=== PATIENT | male | born 1965 | race Caucasian/White ===

== ENCOUNTER 2017-03-14 15:59 | Inpatient (IN) ==
[2017-03-14] MEDS ORDERED: Acetaminophen 325 MG TABLET PO PRN (20:13)
[2017-03-14] MEDS ORDERED: Naloxone 0.4 MG/ML INJ IVP PRN (21:09)
--- NOTE | 2017-03-14 21:19 | Internal Med History&Physical ---
Date of Encounter: 03/14/17 Time of Encounter: 21:16 Assessment and Plan (1) Chest pain Current visit: Yes Status: Acute trend trop repeat ekg check TTE further management pending above testing Qualifiers: Chest pain type: precordial pain Qualified Code(s): R07.2 - Precordial pain (2) Afib Current visit: Yes Status: Acute will repeat EKG to confirm [facility] report - was not able to find EKG done at [facility] Qualifiers: Atrial fibrillation type: unspecified Qualified Code(s): I48.91 - Unspecified atrial fibrillation (3) DMII (diabetes mellitus, type 2) Current visit: Yes Status: Acute continue Lantus 150mg BID as confirmed by patient, ISS Qualifiers: Chronic kidney disease stage: unspecified stage Qualified Code(s): E11.22 - Type 2 diabetes mellitus with diabetic chronic kidney disease; Z79.4 - continuous churn buttermaker (current) use of insulin; Z79.4 - residential (current) use of insulin; Z79.4 - continuous churn buttermaker (current) use of insulin; Z79.4 - continuous churn buttermaker (current) use of insulin (4) Obesity Current visit: Yes Status: Acute OHS on CPAP when asleep Qualifiers: Qualified Code(s): E66.9 - Obesity, unspecified Internal Medicine - H&P: HPI Chief complaint: CP Admitted From: Home History of present illness: Mr. Guerrero is a 51 year old male who presents with CP Co-morbid obesity, IDDM, ROMEO on CPAP, chronic back pain, HTN He is a transfer from [facility]. Chest pain for the last 2-3 days. Pain described as sharp, somewhat worsen with inspiration, radiation to the left arm, comes and goes lasting 15-20 mins at a time. Nitro helped. No exertional component and can happen while at rest. CTA of chest in [facility] negative for PNA to evidence of PE Some reports of AFib via kandy paper work vs. PVC Past Med Surg Social Fam HX - Past Medical History Medical history: arthritis, GERD, hyperlipidemia, hypertension, kidney stones Psychiatric history: anxiety, depression - Past Surgical History Surgical History: orthopedic, other - Social History Smoking Status: Former smoker Smokeless Tobacco Status: No Alcohol use: none Drug use: none - Family History Father Living Status: Still Living Hx Family Cardiac Disorders: Yes Hx Family GI Disorders: Yes (bowel resection) Hx Family Endocrine Disorder: Yes (diabetic) Internal Medicine - H&P: Meds Furosemide [Lasix] 40 mg PO DAILY 08/03/15 [History] Insulin Glargine [Lantus] 150 unit SQ BID 08/03/15 [History] Oxycodone HCl/Acetaminophen [Percocet 10-325 mg Tablet] 1 tab PO Q4H PRN [History] 3 Allergy/AdvReac Type Severity Reaction Status Date / Time No Known Allergies Allergy Verified 08/03/15 09:19 All Systems PM: A 10-system review of systems was performed and is negative for pertinent findings except as documented above in the HPI. Review of systems: ROS 14 point review of systems reviewed as best as possible given presentation. Pertinent positive or negative as per HPI or otherwise reviewed as negative - Constitutional Vitals: Temp Pulse Resp BP Pulse Ox 98.6 F 88 18 121/78 97 03/14/17 19:03/14/17 19:03/14/17 19:03/14/17 19:03/14/17 21:03 Exam: General - AAO x 3 Psych - Appropriate affect/speech. No agitation Eyes - ANJEL. Eye lids intact. No scleral icterus Neuro - Moving all 4 extremities Heart - Sinus. RRR. S1 and S2 present. No added HS/murmurs appreciated. No elevated JVD appreciated. Lung - Adequate air entry b/l, No crackles/wheezes appreciated GI - Soft, non-tender. No hepatosplenomegaly/ascites. BS+ - No CVA/suprapubic tenderness or palpable bladder distension
[2017-03-14] MEDS ORDERED: D5% in Water 1,000 ML IVC PRN (21:22)
[2017-03-14] MEDS ORDERED: Dextrose Gel 15 GM/37.5 ML TUBE PO PRN ×2 (21:22)
[2017-03-14] MEDS ORDERED: *HR* Dextrose 50 % in Water (Syg) 50 ML SYRINGE IVP PRN (21:22)
[2017-03-14] MEDS: *HR* OxyCODONE/APAP 10/325 TABLET PO PRN (23:01)
[2017-03-14] MEDS: Nitroglycerin 0.4 MG TAB.SUBL SL PRN (23:58)
[2017-03-15] MEDS: Nitroglycerin 0.4 MG TAB.SUBL SL PRN (00:15)
[2017-03-15] MEDS: Pregabalin 75 MG CAPSULE PO SCH ×3 (01:31→20:10)
[2017-03-15] MEDS: traZODone 50 MG TABLET PO SCH ×2 (01:31→20:10)
[2017-03-15] MEDS: *HR* OxyCODONE/APAP 10/325 TABLET PO PRN ×2 (03:47→23:09)
[2017-03-15 04:00] LABS: Basophils # 0.1 K/mcL (0.0-0.2); Basophils % 0.5 %; Eosinophils # 0.1 K/mcL (0.0-0.6); Hematocrit 49.7 % (37.5-50.1); Immature Granulocytes % 0.3 % (0-4); Lymphocytes # 2.2 K/mcL (0.6-4.6); Lymphocytes % 22.7 %; Mean Corpuscular HGB Conc 30.2 g/dL (31.6-35.5); Mean Corpuscular Hemoglobin 25.4 pg (28.0-33.3); Mean Corpuscular Volume 84.1 fL (83.0-100.0); Mean Platelet Volume 11.7 fL (9.4-12.4); Monocytes # 0.7 K/mcL (0.0-1.3); Monocytes % 7.8 %; Neutrophils # 6.5 K/mcL (1.6-8.9); Platelet Count 272 K/mcL (140-400); Red Blood Count 5.91 M/mcL (4.19-5.50); Red Cell Distribution Width 17.7 % (11.5-14.5); Segmented Neutrophils % 67.7 %
[2017-03-15 04:06] LABS: Alanine Aminotransferase 10 Units/L (7-52); Alkaline Phosphatase 61 Units/L (34-104); Aspartate Amino Transferase 14 Units/L (13-39); BUN/Creatinine Ratio 18 (6-26); Bilirubin,Total 0.8 mg/dL (0.3-1.0); Blood Urea Nitrogen 15 mg/dL (6-20); Calcium 9.4 mg/dL (8.6-10.3); Carbon Dioxide 31 mEq/L (23-29); Chloride 100 mEq/L (98-107); Globulin 4.1 g/dL (2.4-3.5); Glucose 172 mg/dL (70-105); Magnesium 1.7 mg/dL (1.6-2.6); Osmolality,Calculated 295 (280-300); Potassium 3.7 mEq/L (3.5-5.1); Sodium 140 mEq/L (136-145); Total Protein 8.1 g/dL (6.4-8.9); eGFR For African Americans > 60 (> 60); eGFR For Non-African Americans > 60 (> 60)
[2017-03-15] MEDS ORDERED: *HR* Enoxaparin 40 MG/0.4 ML SYRINGE SQ SCH (06:00)
[2017-03-15] MEDS ORDERED: Perflutren Lipid Microsphere 1.3 ML in 0.9 % Sodium Chloride 8.7 ML IVP ONE (07:45)
[2017-03-15] MEDS ORDERED: Insulin DETEMIR 100 UNIT/ML X5UNITS SQ SCH (09:00)
[2017-03-15] MEDS ORDERED: INSULIN GLARGINE SQ SCH (09:00)
[2017-03-15] MEDS: Furosemide 40 MG TABLET PO SCH (09:16)
[2017-03-15] MEDS: Insulin LISPRO 300 UNITS/3 ML VIAL SQ SCH ×4 (09:16→20:25)
[2017-03-15] MEDS: *HR* Enoxaparin 40 MG/0.4 ML SYRINGE SQ SCH (09:16)
[2017-03-15] MEDS: Insulin DETEMIR 100 UNIT/ML X5UNITS SQ SCH ×2 (09:16→20:09)
[2017-03-15] MEDS: Aspirin 81 MG TAB.CHEW PO SCH (10:54)
--- NOTE | 2017-03-15 12:35 | Electrocardiograph Report ---
[address] [address] Test Date: 2017-03-15 Pat Name: Azael Guerrero Department: 113 Room: 3B33 Gender: M [employer] Operator: LIEN : 1965 Requested By: Tessa Zhong Order Number: [id number] Reading MD: Juan Pablo Segal MD Measurements Intervals [place] Rate: 94 P: 65 RI: 200 QRS: 22 QRSD: 94 T: 90 QT: 384 QTc: 436 Interpretive Statements SINUS RHYTHM WITH FREQUENT VENTRICULAR PREMATURE COMPLEXES IN COUPLET PATTERN ABNORMAL RHYTHM ECG Electronically Signed On 03-15-2017 12:34:18 EST by Juan Pablo Segal MD
--- NOTE | 2017-03-15 16:10 | Internal Med Progress Note ---
Date of Encounter: 03/15/17 Time of Encounter: 10:30 - Assessment and plan (1) Chest pain Current Visit: Yes Status: Acute Qualifiers: Chest pain type: precordial pain Qualified Code(s): R07.2 - Precordial pain (2) Afib Current Visit: Yes Status: Acute Assessment and plan: Outside hospital EKG with A. fib, HR 92. No evidence of atrial fibrillation on EKG or tele. Telemetry reviewed did note bigeminy and PVCs. No hx of A. fib per patient. Hold on anticoagulation at this time. Continue BB. Cardiology consult Qualifiers: Atrial fibrillation type: paroxysmal Qualified Code(s): I48.0 - Paroxysmal atrial fibrillation (3) DMII (diabetes mellitus, type 2) Current Visit: Yes Status: Acute Assessment and plan: per hx. Control unknown. Continue home long-acting, low-dose SSI. Monitor blood sugars and titrate PRN Qualifiers: Chronic kidney disease stage: unspecified stage Qualified Code(s): E11.22 - Type 2 diabetes mellitus with diabetic chronic kidney disease; Z79.4 - correction (current) use of insulin; Z79.4 - extermination inspector (current) use of insulin; Z79.4 - extermination inspector (current) use of insulin; Z79.4 - extermination inspector (current) use of insulin (4) Obesity Current Visit: Yes Status: Acute Assessment and plan: BMI 60, weight 186 kg. Lifestyle modification strongly encouraged. Qualifiers: Obesity type: due to excess calories Obesity classification: adult class 3 (BMI >= 40) Body mass index: BMI 60.0-69.9 Qualified Code(s): E66.01 - Morbid (severe) obesity due to excess calories; Z68.44 - Body mass index (BMI) 60.0-69.9, adult; Z68.44 - Body mass index (BMI) 60.0-69.9, adult; Z68.44 - Body mass index (BMI) 60.0-69.9, adult; Z68.44 - Body mass index (BMI) 60.0-69.9 , adult (5) ROMEO (obstructive sleep apnea) Current Visit: Yes Status: Acute Assessment and plan: cont BiPAP (6) DVT prophylaxis Current Visit: Yes Status: Acute Assessment and plan: lovenox - Subjective Interval history: Seen and examined at bedside. Patient is new to me, information obtained from chart review and patient report. Still with intermittent left-sided chest pain that radiates to left arm. No shortness of breath. No palpitations, - Constitutional Vitals: Temp Pulse Resp BP Pulse Ox 97.8 F 90 15 119/79 96 03/15/17 15:32 03/15/17 15:32 03/15/17 15:32 03/15/17 15:32 03/15/17 15:32 General appearance: Present: A&O X 3, morbidly obese - Head Head exam: Present: atraumatic, normocephalic - Eye Eye exam: Present: PERRL, conjuntiva pink, sclera anicteric Pupils: Present: PERRL - Neck Neck exam general surgery: Present: supple, trachea midline. Absent: lymphadenopathy - Respiratory Respiratory exam: Present: CTAB. Absent: accessory muscle use, rales, rhonchi, wheezes - Cardiovascular Cardiovascular exam: Present: RRR, +S1, +S2. Absent: diastolic murmur, gallop, rubs, systolic murmur - GI/Abdominal GI/Abdominal exam: Present: normal bowel sounds, soft, no peritoneal signs. Absent: distended, tenderness - Extremities Exam Extremities exam: Present: warm, radial pulses palpable and symmetrical. Absent : calf tenderness, cyanotic, pedal edema - Neurological Exam Neurological exam: Present: CN II-XII intact, oriented X3, no focal deficits. Absent: pronater drift, facial droop, speech deficit - Skin Skin exam: Present: dry, intact Internal Medicine: Result - Labs CBC & Chem 7: 03/15/17 03:32 03/15/17 03:32 Labs: Short CBC 03/15/17 Range/Units 03:32 WBC 9.5 (4.3-11.1) K/mcL Hgb 15.0 (12.9-16.9) g/dL Hct 49.7 (37.5-50.1) % Plt Count 272 (140-400) K/mcL Neutrophils # 6.5 (1.6-8.9) K/mcL BMP 03/15/17 03:32 Sodium 140 Potassium 3.7 Chloride 100 Carbon Dioxide 31 H BUN 15 Creatinine 0.85 Glucose 172 H Calcium 9.4 Cardiac Enzymes 03/14/17 03/15/17 03/15/17 Range/Units 21:27 03:32 10:19 Troponin I < 0.03 < 0.03 < 0.03 (< 0.04) ng/mL Liver Function 03/15/17 Range/Units 03:32 Total Bilirubin 0.8 (0.3-1.0) mg/dL AST 14 (13-39) Units/L ALT 10 (7-52) Units/L Alkaline Phosphatase 61 (34-104) Units/L Albumin 4.0 (3.5-5.7) g/dL - Impressions Impressions Echocardiogram 03/15/17 21:14 Impressions: Technically sub-optimal due to body habitus. LVEF 50%. Mildly dilated left ventricle. Indeterminate diastolic function. Despite the use of contrast enhancement, evaluation of LV function suboptimal. Grossly, overall LVEF appears low normal. Right ventricle not well visualized. Grossly, it appears dilated with normal function. Unable to estimate RVSP due to lack of TR jet. No obvious significant valvular dysfunction. Findings: Study Quality * Technically sub-optimal due to body habitus. ECG Findings * Difficult to determine rhythm. Left Ventricle * LVEF 50%. * Mildly dilated left ventricle. * Indeterminate diastolic function. * Despite the use of contrast enhancement, evaluation of LV function suboptimal. Grossly, overall LVEF appears low normal. Right Ventricle * Right ventricle not well visualized. Grossly, it appears dilated with normal function. Left Atrium * Left atrium is not well visualized. Right Atrium * Right atrium is not well visualized. Interatrial Septum * Interatrial septum not well evaluated. Aortic Valve * Aortic valve not well visualized. Mitral Valve * Normal mitral valve structure and function. * No mitral regurgitation. * No mitral stenosis. Tricuspid Valve * Tricuspid valve not well visualized. * No tricuspid regurgitation. * Unable to estimate RVSP due to lack of TR jet. Pulmonic Valve * Pulmonic valve not well visualized. Aorta * Grossly, normally sized aortic root. Pericardium * The pericardium appears normal. IVC * Normal IVC dimensions and inspiratory collapse. Pulmonary Artery * Pulmonary artery not well visualized. Consult Discharge Plan - Plan Referrals: Abimael Carty MD [Primary Care Provider] -
[2017-03-15] MEDS ORDERED: traZODone 50 MG TABLET PO SCH (21:00)
[2017-03-15] MEDS ORDERED: Pregabalin 75 MG CAPSULE PO SCH (21:00)
[2017-03-16 04:18] LABS: Chol/HDL Ratio 4.2 (0-4.9)
[2017-03-16 04:31] LABS: Hemoglobin A1C 9.3 %
[2017-03-16] MEDS ORDERED: Regadenoson 0.4 MG/5 ML SYRINGE IVP ONE (06:42)
[2017-03-16] MEDS: Insulin LISPRO 300 UNITS/3 ML VIAL SQ SCH ×5 (08:42→20:12)
[2017-03-16] MEDS: *HR* Enoxaparin 40 MG/0.4 ML SYRINGE SQ SCH (09:24)
[2017-03-16] MEDS: Furosemide 40 MG TABLET PO SCH (09:25)
[2017-03-16] MEDS: Insulin DETEMIR 100 UNIT/ML X5UNITS SQ SCH ×2 (09:25→20:12)
[2017-03-16] MEDS: Lisinopril 20 MG TABLET PO SCH (09:25)
[2017-03-16] MEDS: Pregabalin 75 MG CAPSULE PO SCH ×2 (09:25→20:11)
[2017-03-16] MEDS: *HR* OxyCODONE/APAP 10/325 TABLET PO PRN ×2 (09:25→20:15)
[2017-03-16] MEDS: Aspirin 81 MG TAB.CHEW PO SCH (09:26)
[2017-03-16] MEDS: (Dapagliflozin Propanediol [Farxiga] 10 MG) PO SCH (09:26)
--- NOTE | 2017-03-16 12:10 | Cardiology Consult Note ---
Date of Encounter: 03/16/17 Time of Encounter: 12:08 Assessment and Plan (1) Chest pain Current Visit: Yes Status: Acute CP with multiple CRFs and abnormal stress test, [facility] planned during this admission Qualifiers: Chest pain type: precordial pain Qualified Code(s): R07.2 - Precordial pain Discussion w patient/family: The assessment and plan as outlined above was discussed with the patient and/or family members who expressed understanding and agreement. All questions were answered. Thank you for involving us in the care of your patient. Please call with any questions. History of Present Illness Consult date: 03/16/17 Consult reason: chest pain Chief complaint: chest pain History of present illness: Mr. Guerrero is a 51 year old male with h/o DM, HTN, presents with chest pain typical in presentation heaviness RSCP radiating down the LUE. NST abnormal with inferior and anterior reversible defects. D/W pt R/B/A of a LHC and pt agrees to proceed. Echo LVEF low nml 50% Past Med Surg Social Fam HX - Past Medical History Medical history: arthritis, GERD, hyperlipidemia, hypertension, kidney stones Psychiatric history: anxiety, depression - Past Surgical History Surgical History: orthopedic, other - Social History Smoking Status: Former smoker Smokeless Tobacco Status: No Alcohol use: none Drug use: none - Family History Father Living Status: Still Living Hx Family Cardiac Disorders: Yes Hx Family GI Disorders: Yes (bowel resection) Hx Family Endocrine Disorder: Yes (diabetic) Medications and Allergies Furosemide [Lasix] 80 mg PO BID PRN 08/03/15 [History] Insulin Glargine [Lantus] 150 unit SQ BID 08/03/15 [History] Oxycodone HCl/Acetaminophen [Percocet 10-325 mg Tablet] 1 tab PO Q4H PRN [History] Aspirin 81 mg PO DAILY 03/15/17 [History] Atorvastatin [Lipitor] 40 mg PO HS 03/15/17 [History] Carvedilol [Coreg] 6.25 mg PO BIDWM 03/15/17 [History] Cyclobenzaprine [Flexeril] 10 mg PO HS 03/15/17 [History] Dapagliflozin Propanediol [Farxiga] 10 mg PO DAILY 03/15/17 [History] Docusate [Colace] 100 mg PO DAILY PRN 03/15/17 [History] Duloxetine HCl [Cymbalta] 60 mg PO DAILY 03/15/17 [History] Lisinopril [Zestril] 40 mg PO DAILY 03/15/17 [History] Metformin HCl [Fortamet] 1,000 mg PO HS 03/15/17 [History] Pregabalin [Lyrica] 300 mg PO BID 03/15/17 [History] Trazodone HCl 100 mg PO HS 03/15/17 [History] 3 Allergy/AdvReac Type Severity Reaction Status Date / Time No Known Allergies Allergy Verified 08/03/15 09:19 All Systems Review: A 10-system review of systems was performed and is negative for pertinent findings except as documented above in the HPI. Physical Examination Vital Signs, Last 4 Hours Temp Pulse Resp BP Pulse Ox 03/16/17 12:04 97.9 F 84 16 110/76 95 General: Conversant, No Apparent Distress HEENT: Atraumatic, Normocephaly, Mucus Membranes Moist Neck: No JVD, Normal carotid pulses Cardiac: Reg Rate and Rhythm, Normal S1 and S2, No Murmur Lungs: Normal Breath Sounds, No Wheeze, Rales, Rhonchi Neuro: Alert and responsive, No focal deficits noted Abdomen: Soft, Non-Tender Skin: No rashes noted on visualized skin Musculoskeletal: No Chest Wall Tenderness Extremities: No Clubbing, No Cyanosis, No Edema, Normal Pulses Results 03/15/17 03:32 03/15/17 03:32 Consult Discharge Plan - Plan Referrals: Abimael Carty MD [Primary Care Provider] -
--- NOTE | 2017-03-16 15:16 | Internal Med Progress Note ---
Date of Encounter: 03/16/17 Time of Encounter: 15:10 - Assessment and plan (1) Chest pain Current Visit: Yes Status: Acute Assessment and plan: presented to [facility] with chest pain that radiated to left arm. No known history CAD, no previous ischemic evaluation. Serial troponins negative, EKG without acute ST changes. TTE with EF 50% of note this was a technically suboptimal study due to body habitus. Overall LVEF appears to be low normal. Nuclear stress test with a small size, mild intensity reversible defect to the anterior and inferior segments possibly secondary to ischemia. Cardiology consulted. Cont ASA Qualifiers: Chest pain type: precordial pain Qualified Code(s): R07.2 - Precordial pain (2) Afib Current Visit: Yes Status: Acute Assessment and plan: Outside hospital EKG with A. fib, HR 92. No evidence of atrial fibrillation on EKG or tele. Telemetry reviewed did note bigeminy and PVCs. No hx of A. fib per patient. Hold on anticoagulation at this time. Continue BB. Cardiology consult Qualifiers: Atrial fibrillation type: paroxysmal Qualified Code(s): I48.0 - Paroxysmal atrial fibrillation (3) DMII (diabetes mellitus, type 2) Current Visit: Yes Status: Acute Assessment and plan: per hx. Uncontrolled. Hgb A1c 9.3% (patient reports this is lower than previous) . Continue home long-acting, low-dose SSI. Monitor blood sugars and titrate PRN Qualifiers: Chronic kidney disease stage: unspecified stage Qualified Code(s): E11.22 - Type 2 diabetes mellitus with diabetic chronic kidney disease; Z79.4 - senior living (current) use of insulin; Z79.4 - terminal gauger supervisor (current) use of insulin; Z79.4 - terminal gauger supervisor (current) use of insulin; Z79.4 - terminal gauger supervisor (current) use of insulin (4) Obesity Current Visit: Yes Status: Acute Assessment and plan: BMI 60, weight 186 kg. Lifestyle modification strongly encouraged. Qualifiers: Obesity type: due to excess calories Obesity classification: adult class 3 (BMI >= 40) Body mass index: BMI 60.0-69.9 Qualified Code(s): E66.01 - Morbid (severe) obesity due to excess calories; Z68.44 - Body mass index (BMI) 60.0-69.9, adult; Z68.44 - Body mass index (BMI) 60.0-69.9, adult; Z68.44 - Body mass index (BMI) 60.0-69.9, adult; Z68.44 - Body mass index (BMI) 60.0-69.9 , adult (5) ROMEO (obstructive sleep apnea) Current Visit: Yes Status: Acute Assessment and plan: cont BiPAP (6) DVT prophylaxis Current Visit: Yes Status: Acute Assessment and plan: lovenox - Subjective Interval history: Seen and examined at bedside. Says he had an uneventful night. Slept well. No further chest pain or shortness of breath. He does report recent chest cold with excessive coughing which he thinks is contributing to his chest pain. Cough is nonproductive. Subjective fevers prior to arrival. Would like to go home if possible later this evening. However he is agreeable to stay for left heart catheterization if that is recommended. - Constitutional Vitals: Temp Pulse Resp BP Pulse Ox 97.9 F 84 16 110/76 95 03/16/17 12:04 03/16/17 12:04 03/16/17 12:04 03/16/17 12:04 03/16/17 12:04 General appearance: Present: A&O X 3, morbidly obese - Head Head exam: Present: atraumatic, normocephalic - Eye Eye exam: Present: PERRL, conjuntiva pink, sclera anicteric Pupils: Present: PERRL - Neck Neck exam general surgery: Present: supple, trachea midline. Absent: lymphadenopathy - Respiratory Respiratory exam: Present: CTAB. Absent: accessory muscle use, rales, rhonchi, wheezes - Cardiovascular Cardiovascular exam: Present: RRR, +S1, +S2. Absent: diastolic murmur, gallop, rubs, systolic murmur - GI/Abdominal GI/Abdominal exam: Present: normal bowel sounds, soft, no peritoneal signs. Absent: distended, tenderness - Extremities Exam Extremities exam: Present: warm, radial pulses palpable and symmetrical. Absent : calf tenderness, cyanotic, pedal edema - Neurological Exam Neurological exam: Present: CN II-XII intact, oriented X3, no focal deficits. Absent: pronater drift, facial droop, speech deficit - Skin Skin exam: Present: dry, intact Internal Medicine: Result - Labs CBC & Chem 7: 03/15/17 03:32 03/15/17 03:32 Consult Discharge Plan - Plan Referrals: Abimale Carty MD [Primary Care Provider] -
[2017-03-16] MEDS: traZODone 50 MG TABLET PO SCH (20:12)
[2017-03-17] MEDS: *HR* OxyCODONE/APAP 10/325 TABLET PO PRN ×3 (03:52→17:33)
[2017-03-17] MEDS: Aspirin 81 MG TAB.CHEW PO SCH (08:45)
[2017-03-17] MEDS: Insulin LISPRO 300 UNITS/3 ML VIAL SQ SCH ×4 (08:45→21:15)
[2017-03-17] MEDS: Pregabalin 75 MG CAPSULE PO SCH ×2 (08:45→21:14)
[2017-03-17] MEDS: Furosemide 40 MG TABLET PO SCH (08:45)
[2017-03-17] MEDS: *HR* Enoxaparin 40 MG/0.4 ML SYRINGE SQ SCH (08:46)
[2017-03-17] MEDS: Insulin DETEMIR 100 UNIT/ML X5UNITS SQ SCH ×2 (08:46→21:14)
[2017-03-17] MEDS: Lisinopril 20 MG TABLET PO SCH (08:46)
[2017-03-17] MEDS: (Dapagliflozin Propanediol [Farxiga] 10 MG) PO SCH (08:53)
--- NOTE | 2017-03-17 10:28 | Cardiology Progress Note ---
Date of Encounter: 03/17/17 Time of Encounter: 10:00 Assessment and Plan (1) Chest pain Current Visit: Yes Status: Acute Per cardiology: -Admitted with chest pain, pain atypical. Occurs with position change and with coughing. -Denies current chest pain. -ECG with no acute ischemic changes noted. Of note, ECGs reviewed from [facility] and noted to be SR, with frequent PVCs. NO a.fib appreciated. -TTE with lVEF 50%, technically sub-optimal due to body habitus. -Troponins negative. -PLan for LHC tomorrow. NPO after midnight. RIsks versus benefits of LHC explained to patient. Patient states understanding and agreeable to proceed. -Further recommendations pending LHC. Qualifiers: Chest pain type: precordial pain Qualified Code(s): R07.2 - Precordial pain Discussion w patient/family: The assessment and plan as outlined above was discussed with the patient who expressed understanding and agreement. All questions were answered. Thank you for involving us in the care of your patient. Please call with any questions. Discussed and reviewed with . Subjective Principal diagnosis: Chest pain Interval history: Patient denies current chest pain, Objective Vital Signs, Last 4 Hours Temp Pulse Resp BP Pulse Ox 03/17/17 07:04 97.5 F L 89 18 105/69 97 General: Conversant, No Apparent Distress HEENT: Atraumatic, Normocephaly, Mucus Membranes Moist Neck: No JVD, Normal carotid pulses Cardiac: Reg Rate and Rhythm, Normal S1 and S2, No Murmur Lungs: Normal Breath Sounds, No Wheeze, Rales, Rhonchi Neuro: Alert and responsive, No focal deficits noted Abdomen: Soft, Non-Tender Skin: Other (Bilateral lower extermities with vascular color changes noted. ) Musculoskeletal: No Chest Wall Tenderness Extremities: No Clubbing, No Cyanosis, No Edema, Normal Pulses Results 03/15/17 03:32 03/15/17 03:32 Active Medications Acetaminophen (Tylenol) 650 mg PO Q6HR PRN PRN Reason: Pain Stop: 09/13/17 20:14 Last Admin: 03/14/17 20:49 Dose: 650 mg Aspirin (Aspirin) 81 mg PO DAILY [facility] Stop: 09/14/17 09:46 Last Admin: 03/17/17 08:45 Dose: 81 mg Atorvastatin Calcium (Lipitor) 40 mg PO HS [facility] Stop: 09/14/17 21:01 Last Admin: 03/16/17 20:11 Dose: 40 mg Carvedilol (Coreg) 6.25 mg PO BIDWM [facility] PRN Reason: Protocol Stop: 09/14/17 17:01 Last Admin: 03/17/17 08:46 Dose: 6.25 mg Clopidogrel Bisulfate (Plavix) 75 mg PO DAILY [facility] Stop: 09/16/17 09:01 Last Admin: 03/17/17 08:45 Dose: 75 mg Cyclobenzaprine HCl (Flexeril) 10 mg PO HS [facility] Stop: 09/14/17 21:01 Last Admin: 03/16/17 20:11 Dose: 10 mg Dextrose/Water (Dextrose 50% (Syg)) 25 ml IVP AD PRN PRN Reason: Hypoglycemia Stop: 09/13/17 21:23 Enoxaparin Sodium (Lovenox) 40 mg SQ DAILY [facility] PRN Reason: Protocol Stop: 09/14/17 09:01 Last Admin: 03/17/17 08:46 Dose: Not Given Furosemide (Lasix) 40 mg PO DAILY [facility] Stop: 09/14/17 09:01 Last Admin: 03/17/17 08:45 Dose: 40 mg Glucagon (Glucagen) 1 mg IM ONCE PRN PRN Reason: Hypoglycemia Stop: 09/13/17 21:23 Glucose (Gluctose) 15 gm PO ONCE PRN PRN Reason: Hypoglycemia Stop: 09/13/17 21:23 Glucose (Gluctose) 30 gm PO ONCE PRN PRN Reason: Hypoglycemia Stop: 09/13/17 21:23 Dextrose (Dextrose 5%) 1,000 mls @ 100 mls/hr IVC .Q10H PRN PRN Reason: HYPOGLYCEMIA Stop: 09/13/17 21:23 Insulin Detemir (Levemir) 75 unit SQ BID [facility] Stop: 09/14/17 09:01 Last Admin: 03/17/17 08:46 Dose: 75 unit Insulin Human Lispro (Humalog) 0 units SQ TIDAC [facility] PRN Reason: Protocol Stop: 09/14/17 07:31 Last Admin: 03/17/17 08:45 Dose: 10 units Insulin Human Lispro (Humalog) 0 units SQ HS [facility] PRN Reason: Protocol Stop: 09/14/17 21:01 Last Admin: 03/16/17 20:12 Dose: 3 units Lisinopril (Zestril) 40 mg PO DAILY [facility] Stop: 09/15/17 09:01 Last Admin: 03/17/17 08:46 Dose: 40 mg Naloxone HCl (Narcan) 0.4 mg IVP Q2MIN PRN PRN Reason: Opioid Reversal Stop: 09/13/17 21:10 Nitroglycerin (Nitroglycerin) 0.4 mg SL Q5MIN PRN PRN Reason: Chest Pain Stop: 09/13/17 21:16 Last Admin: 03/15/17 00:15 Dose: 0.4 mg Oxycodone/Acetaminophen (Percocet 10/325) 1 each PO Q4H PRN PRN Reason: Pain Stop: 09/13/17 21:10 Last Admin: 03/17/17 03:52 Dose: 1 each Pharmacy Profile Note (Patient Taking Own Medication) 10 each PO DAILY [facility] Stop: 09/15/17 09:01 Last Admin: 03/17/17 08:53 Dose: Not Given Pregabalin (Lyrica) 300 mg PO BID [facility] Stop: 09/14/17 01:01 Last Admin: 03/17/17 08:45 Dose: 300 mg Trazodone HCl (Trazodone) 100 mg PO HS [facility] Stop: 09/14/17 01:01 Last Admin: 03/16/17 20:12 Dose: 100 mg Laboratory Tests 03/15/17 03/15/17 03:32 03:32 Hgb 15.0 Creatinine 0.85 - Imaging and Cardiology Chest Xray: report reviewed Stress Test: report reviewed Echo: report reviewed Cardiac cath: pending - EKG Interpretation EKG results cardiology: other (Telemetry reviewed with average HR previous 12 hours noted to be 95, frequent PVCs, couplets noted. A couplet 4 beat runs of non-sustained VT noted. PACs noted.) Consult Discharge Plan - Plan Referrals: Abimael Carty MD [Primary Care Provider] -
--- NOTE | 2017-03-17 14:52 | Internal Med Progress Note ---
Date of Encounter: 03/17/17 Time of Encounter: 14:47 - Assessment and plan (1) Chest pain Current Visit: Yes Status: Acute Assessment and plan: presented to [facility] with chest pain that radiated to left arm. No known history CAD, no previous ischemic evaluation. Serial troponins negative, EKG without acute ST changes. TTE with EF 50%; of note this was a technically suboptimal study due to body habitus. Overall LVEF appeared to be low normal. Nuclear stress test with a small size, mild intensity reversible defect to the anterior and inferior segments possibly secondary to ischemia. PLan for [facility] tomorrow. NPO after midnight. Cardiology following. Cont ASA, Plavix Qualifiers: Chest pain type: precordial pain Qualified Code(s): R07.2 - Precordial pain (2) DMII (diabetes mellitus, type 2) Current Visit: Yes Status: Acute Assessment and plan: per hx. Uncontrolled. Hgb A1c 9.3% (patient reports this is lower than previous) . Continue home long-acting, low-dose SSI. 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 Lifestyle modification strongly encouraged. Qualifiers: Obesity type: due to excess calories Obesity classification: adult class 3 (BMI >= 40) Body mass index: BMI 60.0-69.9 Qualified Code(s): E66.01 - Morbid (severe) obesity due to excess calories; Z68.44 - Body mass index (BMI) 60.0-69.9, adult; Z68.44 - Body mass index (BMI) 60.0-69.9, adult; Z68.44 - Body mass index (BMI) 60.0-69.9, adult; Z68.44 - Body mass index (BMI) 60.0-69.9 , adult (4) ROMEO (obstructive sleep apnea) Current Visit: Yes Status: Acute Assessment and plan: cont BiPAP (5) DVT prophylaxis Current Visit: Yes Status: Acute Assessment and plan: lovenox - Subjective Interval history: Seen and examined at bedside. Says he had an uneventful night. Slept well. No further chest pain or shortness of breath. He does report recent chest cold with excessive coughing which he thinks is contributing to his chest pain. Cough is nonproductive. Subjective fevers prior to arrival. Would like to go home if possible later this evening. However he is agreeable to stay for left heart catheterization if that is recommended. - Constitutional Vitals: Temp Pulse Resp BP Pulse Ox 98.0 F 98 18 116/74 96 03/17/17 10:48 03/17/17 10:48 03/17/17 10:48 03/17/17 10:48 03/17/17 10:48 General appearance: Present: A&O X 3, morbidly obese Internal Medicine: Result - Labs CBC & Chem 7: 03/15/17 03:32 03/15/17 03:32 Consult Discharge Plan - Plan Referrals: Abimael Carty MD [Primary Care Provider] -
[2017-03-17] MEDS: traZODone 50 MG TABLET PO SCH (21:14)
[2017-03-18] MEDS ORDERED: Nitroglycerin 1 INCH/GM PACKET TP ONE (01:10)
[2017-03-18 05:01] LABS: Hematocrit 45.9 % (37.5-50.1); Mean Corpuscular HGB Conc 30.5 g/dL (31.6-35.5); Mean Corpuscular Hemoglobin 26.1 pg (28.0-33.3); Mean Corpuscular Volume 85.5 fL (83.0-100.0); Mean Platelet Volume 12.1 fL (9.4-12.4); Platelet Count 229 K/mcL (140-400); Red Blood Count 5.37 M/mcL (4.19-5.50); Red Cell Distribution Width 17.3 % (11.5-14.5)
[2017-03-18 05:21] LABS: BUN/Creatinine Ratio 30 (6-26); Blood Urea Nitrogen 24 mg/dL (6-20); Calcium 9.1 mg/dL (8.6-10.3); Carbon Dioxide 31 mEq/L (23-29); Chloride 102 mEq/L (98-107); Glucose 299 mg/dL (70-105); Osmolality,Calculated 305 (280-300); Potassium 3.8 mEq/L (3.5-5.1); Sodium 140 mEq/L (136-145); eGFR For African Americans > 60 (> 60); eGFR For Non-African Americans > 60 (> 60)
--- NOTE | 2017-03-18 08:42 | Pre-Sedation Evaluation ---
Pre-sedation evaluation - Pre-sedation checklist Date of procedure: 03/18/17 Procedure: LHC Recent Vitals: Last Vital Signs Temp 97.8 F 03/18/17 07:52 Pulse 104 03/18/17 07:52 Resp 18 03/18/17 07:52 BP 115/76 03/18/17 07:52 Pulse Ox 92 03/18/17 07:52 ASA Classification *see protocol: CLASS II-Mild systemic disease
[2017-03-18] MEDS: Aspirin 81 MG TAB.CHEW PO SCH (08:55)
[2017-03-18] MEDS: *HR* OxyCODONE/APAP 10/325 TABLET PO PRN ×2 (08:55→13:58)
[2017-03-18] MEDS: Lisinopril 20 MG TABLET PO SCH (08:55)
[2017-03-18] MEDS: Pregabalin 75 MG CAPSULE PO SCH (08:55)
[2017-03-18] MEDS: Furosemide 40 MG TABLET PO SCH (08:56)
[2017-03-18] MEDS: (Dapagliflozin Propanediol [Farxiga] 10 MG) PO SCH (08:56)
[2017-03-18] MEDS ORDERED: Heparin 1,000 UNITS/500 mL 500 ML ONE (09:02)
[2017-03-18] MEDS ORDERED: *HR* Heparin 10,000 UNIT/10 ML VIAL ONE (09:02)
[2017-03-18] MEDS ORDERED: 0.9 % Sodium Chloride 1,000 ML ONE ×2 (09:02→09:52)
[2017-03-18] MEDS ORDERED: Nitroglycerin 1,000 MCG/10 ML VIAL IV ONE (09:02)
--- NOTE | 2017-03-18 09:23 | Event Note ---
Date of Encounter: 03/18/17 Time of Encounter: 08:00 - Cardiology Event Note PLan for LHC today for abnormal stress test. RIsks versus benefits of LHC explained to patient. States understanding and agreeable to proceed. Further recommendations pending LHC.
[2017-03-18] MEDS ORDERED: *HR* FentaNYL (PF) 100 MCG/2 ML VIAL ONE (09:56)
[2017-03-18] MEDS ORDERED: *HR* Midazolam HCl 2 MG/2 ML VIAL ONE (09:56)
[2017-03-18 10:59] VITALS: BP 96/67
[2017-03-18] MEDS: Insulin LISPRO 300 UNITS/3 ML VIAL SQ SCH ×2 (11:06→11:08)
[2017-03-18] MEDS: Insulin DETEMIR 100 UNIT/ML X5UNITS SQ SCH (11:08)
[2017-03-18] MEDS: *HR* Enoxaparin 40 MG/0.4 ML SYRINGE SQ SCH (11:08)
--- NOTE | 2017-03-18 11:43 | Event Note ---
Date of Encounter: 03/18/17 Time of Encounter: 11:42 - Cardiology Event Note Per discussion with , no intervention needed on [facility]. Cardiology will sign off and will follow in outpatient setting. Follow up set.
--- NOTE | 2017-03-18 14:17 | Discharge Summary ---
Date of Encounter: 03/18/17 Time of Encounter: 08:55 - Discharge Diagnosis (1) Chest pain Priority: Primary Status: Acute Comments: Patient transferred from [facility] with chest pain that radiated to his left arm. He has had no previous cardiac workup for ischemic evaluation. His pain continued throughout visit and he reports chest pain prior to discharge. Chest pain does become worse with movement. Patient reports increased pain with movement of left arm above his head, chest pain is reproducible with palpation at that time. Troponins are negative. Chest x-ray negative. Echocardiogram showed EF of 50% , overall LVEF appeared to be low normal. Patient had a stress test with a small, mild intensity reversible defect in anterior and inferior segments, possibly secondary to ischemia. Patient had LHC today with no intervention and revealed mild coronary artery disease. Patient will continue aspirin and Plavix after discharge. Cardiology has signed off and patient will follow-up in the clinic. Continue to encourage lifestyle modifications and aggressive risk factor modification. Chest pain also has a musculoskeletal component, recommend ice, heat, Tylenol or Motrin for pain. Qualifiers: Chest pain type: precordial pain Qualified Code(s): R07.2 - Precordial pain (2) CAD (coronary artery disease) Priority: Primary Status: Acute Comments: Revealed per [facility] today. Mild coronary artery disease. Continue aspirin and beta kandi, as well as aggressive risk factor modifications. Qualifiers: Coronary Disease-Associated Artery/Lesion type: [place] artery [place] vs. transplanted heart: [place] heart Associated angina: angina presence unspecified Qualified Code(s): I25.10 - Atherosclerotic heart disease of [place] coronary artery without angina pectoris (3) DMII (diabetes mellitus, type 2) Priority: Secondary Status: Acute Comments: Uncontrolled. A1c is 9.3. Continue home medications, continue Accu-Chek regimen at home. Increase diet exercise and continue diabetic diet. 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 Lifestyle medications. Qualifiers: Obesity type: due to excess calories Obesity classification: adult class 3 (BMI >= 40) Body mass index: BMI 60.0-69.9 Qualified Code(s): E66.01 - Morbid (severe) obesity due to excess calories; Z68.44 - Body mass index (BMI) 60.0-69.9, adult; Z68.44 - Body mass index (BMI) 60.0-69.9, adult; Z68.44 - Body mass index (BMI) 60.0-69.9, adult; Z68.44 - Body mass index (BMI) 60.0-69.9 , adult (5) DVT prophylaxis Priority: Secondary Status: Acute Comments: Lovenox subcutaneous. Patient was ambulatory in the room. (6) ROMEO (obstructive sleep apnea) Priority: Secondary Status: Chronic Comments: Continue BiPAP at home. - Discharge Medications Home Medications: Furosemide [Lasix] 80 mg PO BID PRN 08/03/15 [History] Insulin Glargine [Lantus] 150 unit SQ BID 08/03/15 [History] Oxycodone HCl/Acetaminophen [Percocet 10-325 mg Tablet] 1 tab PO Q4H PRN [History] Aspirin 81 mg PO DAILY 03/15/17 [History] Atorvastatin [Lipitor] 40 mg PO HS 03/15/17 [History] Carvedilol [Coreg] 6.25 mg PO BIDWM 03/15/17 [History] Cyclobenzaprine [Flexeril] 10 mg PO HS 03/15/17 [History] Dapagliflozin Propanediol [Farxiga] 10 mg PO DAILY 03/15/17 [History] Docusate [Colace] 100 mg PO DAILY PRN 03/15/17 [History] Duloxetine HCl [Cymbalta] 60 mg PO DAILY 03/15/17 [History] Lisinopril [Zestril] 40 mg PO DAILY 03/15/17 [History] Metformin HCl [Fortamet] 1,000 mg PO HS 03/15/17 [History] Pregabalin [Lyrica] 300 mg PO BID 03/15/17 [History] Trazodone HCl 100 mg PO HS 03/15/17 [History] Allergies/Adverse Reactions: 3 Allergy/AdvReac Type Severity Reaction Status Date / Time No Known Allergies Allergy Verified 08/03/15 09:19 Procedures/tests Complete & Pending: Procedures Performed prior 72 hours Category Date Time Status CL Cardiac Catheterization [CL] Routine Electrical Logger 03/18/17 08:39 Ordered ECG event monitor 2 weeks [ECG] DAILY Y 03/16/17 13:30 Completed EV echocardiogram w enhance Routine Y 03/15/17 21:14 Completed SP pharm nuclear stress Routine Y 03/16/17 Completed Date of admission: 03/16/17 16:33 Primary care physician: Abimael Carty MD Consults: 03/15/17 16:09 Consult to Cardiology [CONS] Routine Comment: Consulting Provider: Cardiology Alina Reason for Consult: a-fib on outside hospital EKG Call Completed: Yes Discharging clinician: [id number] Anticipated date of discharge: 03/18/17 - Patient Status Disposition: Home, Self-Care Condition: Good Functional capacity at discharge: uses cane/walker Overall status at discharge: patient is progressing back to baseline - Discharge Instructions Follow Up With: Abimael Carty MD [Primary Care Provider] - Additional Instructions: It is imperative that you follow a low fat, reduced calorie, and diabetic diet, as well incorporate daily exercise into your routine. Please follow up with cardiology as scheduled. Return to the ER as needed for any other problems or concerns, or if your symptoms return or worsen. Follow up with your PCP in the next 7-10 days for a recheck. Resume your normal home medications Return to your normal activities as tolerated. - Diet and Activity Activity: increase activity as tolerated Diet: diabetic diet, low fat, low cholesterol Hospital course: Mr. Guerrero is a 51 year old male with extensive past medical history including diabetes, hypertension, obesity, ROMEO, diabetic heel ulcers (resolved) , foot drop right foot. She presented from [facility] with chest pain. Chest pain continued throughout visit. Patient had stress test that indicated ischemia. Echocardiogram with preserved function and indeterminate diastolic function. Patient had LHC today, no intervention required. It revealed mild coronary artery disease. Chest pain also has a musculoskeletal component that is reproducible with movement and palpation. Recommend ice, heat, analgesic pain relief as well as follow-up with cardiology in the clinic. Patient also is encouraged to institute lifestyle modifications, including fulminant diabetic , low-fat, low-cholesterol diet and incorporating exercise into his daily routine. Patient verbalized understanding. Labs and vitals are stable and within normal limits. He is appropriate and anxious for discharge. - Time Spent with Patient Total time spent providing and/or coordinating discharge services: Less than 30 minutes - Constitutional Vitals: Temp Pulse Resp BP Pulse Ox 98.7 F 90 16 96/67 92 03/18/17 10:55 03/18/17 10:55 03/18/17 10:55 03/18/17 10:55 03/18/17 10:55 General appearance: Present: cooperative, A&O X 3, morbidly obese, pleasant, answers questions appropriately - Head Head exam: Present: atraumatic, normal inspection, normocephalic - Eye Eye exam: Present: normal appearance, conjuntiva pink, sclera anicteric - Neck Neck exam general surgery: Present: supple, trachea midline. Absent: lymphadenopathy - Respiratory Respiratory exam: Present: chest wall tenderness, CTAB. Absent: accessory muscle use, rales, rhonchi, wheezes, tachypnea - Cardiovascular Cardiovascular exam: Present: RRR, +S1, +S2. Absent: diastolic murmur, gallop, rubs, systolic murmur, tachycardia - GI/Abdominal GI/Abdominal exam: Present: distended, normal bowel sounds, soft, no peritoneal signs. Absent: tenderness - Extremities Exam Extremities exam: Present: normal capillary refill, normal inspection, warm, radial pulses palpable and symmetrical. Absent: calf tenderness, cyanotic, pedal edema, tenderness - Neurological Exam Neurological exam: Present: alert, oriented X3, no focal deficits. Absent: facial droop, speech deficit - Skin Skin exam: Present: dry, intact, normal color, warm. Absent: rash
--- NOTE | 2017-04-09 13:22 | Invasive Diagnostic Lab Proc ---
Name: Azael Guerrero Date of Study: 03/18/2017 Date: 1965 Ht: 68.9in Medical Record#: [id number] Age: 51 Wt: 414.47lb Gender: Male BSA: 5.53 Order #: [id number] BMI: 61.39 Physicians Procedure Physician: Summer Crook MD Referring MD: Referring MD: Staff Name Position Time In Sites, Melissa RT (R) Monitor 09:58 AM Polina Wu RT (R) Scrub 09:58 AM Angelina Cleary RN Assistant Federal Public Defender 09:58 AM Vee Spivey RN Nurse 10:27 AM Indications Indication Abnormal Test - Stress Procedures Performed Procedure L HRT ARTERY/VENTRICLE ANGIO Pre-Procedure Checklist Informed consent is complete signed and on chart. H&P is on chart. ID band is on and ID verified with patient. Patient NPO for procedure The procedure was described for the patient and questions were answered. Blood Pressure: 115/76 ECG is on chart. Rhythm: NSR Plan of Care Patient will tolerate the procedure without complications. Adequate level of comfort will be maintained. Hemodynamics will remain stable Patient will recover from procedure without complications. Respiratory function will be maintained. Cardiac rhythm will remain stable. Patient temperature will be maintained. Patient and/or family have verbalized understanding of the procedure. Patient Education Chief Complaint/Reason for Test: Cardiac Cath Developmental Category: Geriatric (65+ years) Developmentally Appropriate for Age: Yes Learning Barriers: None Education Needs: Procedure Education Method: Verbal Information Taught: Cardiac Cath Educational Evaluation: Able to repeat information Intravenous Access Time IV Size Location DC'd Fluid/Drip Rate Units RN 18g 1 03/07" Patent On Arrival Lt Arm 0.9NaCl 25 ml/hr Angelina Cleary RN Allergies No Known Allergies Vital Signs Time BP (mmHg) HR (bpm) O2 Sat. RR (bpm) LOC 08:58 AM 115 / 76 104 92 % 18 5 = Fully awake and oriented or at pre-proc level 09:59 AM / % 4 = Oriented but drowsy 09:59 AM / % 4 = Oriented but drowsy 09:53 AM 140 / 97 97 92 % 19 09:58 AM 136 / 101 97 94 % 26 10:04 AM 134 / 89 120 95 % 16 10:08 AM 124 / 99 100 93 % 12 10:13 AM 139 / 84 93 91 % 19 10:18 AM 143 / 93 96 93 % 29 10:24 AM 139 / 101 96 94 % 37 Procedural Medications Time Medication Dose Units Method Given By 09:59 AM Oxygen L/min BiPAP Angelina Cleary RN 09:59 AM Versed 1 mg Intravenous Angelina Cleary RN 09:59 AM Fentanyl 50 mcg Intravenous Angelina Cleary RN 10:05 AM Lidocaine 2% 10 ml Subcutaneous Summer Crook MD ASA Classification: CLASS II- Mild systemic disease (i.e. well-controlled diabetes, hypertension, asthma, cigarette smoking) Ermias Score Preprocedure Postprocedure Activity 2- Moves 4 extremities sustained head lift Activity 2- Moves 4 extremities sustained head lift Circulation 2- SBP +/= 20 points of pre-anesthetic level Circulation 2- SBP +/= 20 points of pre-anesthetic level Consciousness 2- Awake and alert oriented x 3 Consciousness 2- Awake and alert oriented x 3 O2 Saturation 1- Needs O2 inhalation to maintain O2 saturation of 90% O2 Saturation 1- Needs O2 inhalation to maintain O2 saturation of 90% Respiratory 2- Able to deep breathe and cough well Respiratory 2- Able to deep breathe and cough well Total Score 9 Total Score 9 Contrast Agent: Isovue Diagnostic Contrast: 76 ml Total Contrast: 76 ml Fluoro Dose: 491 mGy Procedure Log Time Note Enter By 09:53 AM Vitals capture started with the following parameters, Patient=Adult, Interval=5 min, Initial Vqdomuzc=975 mmHg, Deflation Rate=5 mmHg, Cuff placed on Left Arm 09:53 AM CathStat 09:53 AM HR=97 bpm, TMYC=158/97 mmhg, SpO2=92.0 %, Resp=19 B/min 09:58 AM Pt arrived to laborer prestressed concrete 2 at 09:58 tsites 09:58 AM Melissa Corral RT (R) Position: Monitor Time in: 09:58 tsites 09:58 AM Polina Wu RT (R) Position: Scrub Time in: 09:58 tsites 09:58 AM HR=97 bpm, QNAP=650/101 mmhg, SpO2=94.0 %, Resp=26 B/min 09:58 AM Angelina Cleary RN Position: Assistant Federal Public Defender Time in: 09:58 tsites 09:58 AM Patient charges- Angio tray pack, Navilyst 3mm J, Pulse Oximetry and ACIST tubing and transducer tsites 09:58 AM Physician arrived 09:58 tsites 09:58 AM Meet and greet completed tsites 09:58 AM Sign in performed according to hospital policy. tsites 09:58 AM Procedure start 09:58 tsites 09:59 AM Hair removed from procedure site in holding area using clippers. Bilateral groin prepped with Chloraprep by Polina Wu (R), safety strap applied then patient was draped. Skin intact. tsites 09:59 AM Time: :59 Oxygen on at L/min per BiPAP by Angelina Celary RN tsites 09:59 AM Time: 09:59 Patient comfortable and pain free: Yes tsites :59 AM Time: :59LOC: 4 = Oriented but drowsy tsites 09:59 AM Clinical Presentation: Unstable angina tsites 09:59 AM Time: :59 Versed 1 mg Intravenous Given by Angelina Cleary RN tsites :59 AM Time: 09:59 Fentanyl 50 mcg Intravenous Given by Angelina Cleary RN tsites 10:00 AM Recorded ECG: HR=84 Condition=Condition 1 10:04 AM NW=645 bpm, ZHFM=761/89 mmhg, SpO2=95.0 %, Resp=16 B/min 10:05 AM Time out performed according to hospital policy tsites 10:05 AM Time: 10:05 10 ml Lidocaine 2% to right groin Subcutaneous Given by Summer Crook MD tsites 10:07 AM Pressure channel 1 zero failed. 10:07 AM Pressure channel 1 zero failed. 10:08 AM Pressure channel 1 zeroed. 10:08 AM Micro-Introducer Kit utilized for sheath placement tsites 10:08 AM Access obtained by percutaneous puncture. 6Fr 10cm Terumo Brainard sheath placed in right Femoral artery. [id number] tsites 10:08 AM hand injection of rt femoral artery tsites 10:08 AM TO=303 bpm, OVGV=962/99 mmhg, SpO2=93.0 %, Resp=12 B/min 10:11 AM 5Fr FL 4 catheter inserted over the wire DNC tsites 10:11 AM LCA angiography performed in multiple views. tsites 10:11 AM Recorded Pressure: Ao, HR=92, Condition=Condition 1 (Aorta) Ao 160/57/85 10:13 AM Lesion found in Proximal LAD. Pre Stenosis: 25 Pre ELIZABETH Flow: tsites 10:13 AM HR=93 bpm, KQWL=907/84 mmhg, SpO2=91.0 %, Resp=19 B/min 10:13 AM wire reinserted catheter removed tsites 10:14 AM 5Fr FR 4 catheter inserted over the wire DNC tsites 10:14 AM Time: 09:59LOC: 4 = Oriented but drowsy tsites 10:14 AM Time: 09:59 Patient comfortable and pain free: Yes tsites 10:14 AM Recorded Pressure: LV, HR=93, Condition=Condition 1 (Left Ventricle) LV 120/27/29 10:15 AM Recorded Pressure: LV, Ao, HR=99, Condition=Condition 1 (Left Ventricle) LV 113/29/25, (Aorta) Ao 119/85/101 10:15 AM Catheter selectively placed in left ventricle tsites 10:15 AM EDP measured tsites 10:15 AM Recorded Pressure: Ao, HR=94, Condition=Condition 1 (Aorta) Ao 125/96/108 10:16 AM RCA angiography performed in multiple views. tsites 10:16 AM Lesion found in Proximal RCA. Pre Stenosis: 30 Pre ELIZABETH Flow: tsites 10:16 AM Coronary Dominance: right tsites 10:16 AM Proximal Left Anterior Descending Coronary Artery with 25% stenosis. If graft is supplying this territory, 0 % stenosis. tsites 10:16 AM Right Coronary, Right Posterior Descending Arteries with Right Posterolateral and Acute Marginal branches with 30 % stenosis. If graft is supplying this area, 0 % stenosis tsites 10:17 AM Bolus angiogram of right Femoral complete: 5 ml/sec for a total of 8 mls tsites 10:18 AM Procedure completed at 10:18 tsites 10:18 AM Sign out completed: Radiation Dose 491 mGy Fluoro Time: 1.9 Isovue 370 - 200ml contrast 76 ml given by Summer Crook MD. Complications: NoneCardiac Rehab Consult needed: NoConfirmed administered medications: Yes tsites 10:18 AM Isovue 370 - 500ml,1 Bottle(s) used. tsites 10:18 AM HR=96 bpm, GSWB=732/93 mmhg, SpO2=93 %, Resp=29 B/min 10:18 AM Arterial sheath pulled, Mynx closure device used and was Successful S/N. tsites 10:18 AM Estimated Blood Loss: minimal tsites 10:18 AM Post ECG NSR tsites 10:19 AM 10:19 Post Pulses Bilateral DP & PT 1+ tsites 10:19 AM Information taught Cardiac Cath and Rotoblator tsites 10:19 AM Education needs Procedure, Plan of Care, and Responsibilities of Patient in Care tsites 10:19 AM Learning barriers :None tsites 10:19 AM Education Methods Verbal tsites 10:19 AM Education evaluation Able to repeat information tsites 10:19 AM Site status No bleeding/hematoma - Rt Groin as reported by Polina Wu RT (R) at 10:19 tsites 10:19 AM Opsite applied tsites 10:19 AM Delay to floor No tsites 10:24 AM Report given to diana VANESSA Pt taken to 3B Room #33. 10:24 tsites 10:24 AM HR=96 bpm, UKPP=683/101 mmhg, SpO2=94 %, Resp=37 B/min 10:24 AM Post Blood Pressure 139/99 tsites 10:24 AM Patient out of room: 10:24 tsites 10:27 AM Vee Spivey RN Position: Nurse Time in: 10:27 tsites Complications Complication None Hemodynamics Pressures Site Systolic/A Wave Diastolic/V Wave Mean AO 160 57 85 LV 120 27 29 LV 113 29 25 AO 119 85 101 AO 125 96 108 Post Procedure Information Blood Pressure: 139/99 mmHg Rhythm: NSR Post procedural instructions were given Closure Device Time Device Success/Fail 03/18/2017 10:24:00 AM MynxGrip Successful Site Checks Time Location Status Staff Sheath In? Note 10:19 AM Rt Groin No bleeding/hematoma Polina Wu RT (R) Pulses Time Site Pre-Procedure Post-Procedure Note Bilateral DP & PT 1+ 10:19:00 AM Bilateral DP & PT 1+ Updated by Melissa Corral RT (R) on 03/18/2017 10:28:35 AM RT Rosalia electronically signed on 04/09/2017 1:16:46 PM with status of Final
== END 2017-03-18 15:56 | disposition home or self-care (01) | DRG 287 ==
LOC: 3BNU
PROVIDERS: ADMIT Registered Nurse; ATTEND Registered Nurse

== ENCOUNTER 2020-12-23 03:33 | Inpatient (IN) ==
[2020-12-23 04:29] LABS: Basophils % 0.4 %; Hematocrit 47.5 % (37.5-50.1); Hemoglobin 15.5 g/dL (12.9-16.9); Lymphocytes # 0.8 K/mcL (0.6-4.6); Lymphocytes % 11.3 %; Mean Corpuscular HGB Conc 32.6 g/dL (31.6-35.5); Mean Corpuscular Hemoglobin 26.8 pg (28.0-33.3); Mean Platelet Volume 10.9 fL (9.4-12.4); Monocytes # 0.5 K/mcL (0.0-1.3); Monocytes % 7.9 %; Neutrophils # 5.4 K/mcL (1.6-8.9); Platelet Count 201 K/mcL (140-400); Red Blood Count 5.79 M/mcL (4.19-5.50); Red Cell Distribution Width 17.7 % (11.5-14.5); Segmented Neutrophils % 79.4 %; White Blood Count 6.8 K/mcL (4.3-11.1)
[2020-12-23 04:53] LABS: Alanine Aminotransferase 16 Units/L (7-52); Albumin 3.3 g/dL (3.5-5.7); Albumin/Globulin Ratio 0.8 (1.1-2.2); Alkaline Phosphatase 43 Units/L (34-104); Aspartate Amino Transferase 37 Units/L (13-39); BUN/Creatinine Ratio 19 (6-26); Bilirubin,Direct 0.2 mg/dL (0.0-0.2); Bilirubin,Indirect 0.4 mg/dL (0.0-1.0); Bilirubin,Total 0.6 mg/dL (0.3-1.0); Blood Urea Nitrogen 16 mg/dL (6-20); Calcium 7.9 mg/dL (8.6-10.3); Carbon Dioxide 18 mEq/L (23-29); Chloride 94 mEq/L (98-107); Globulin 3.9 g/dL (2.4-3.5); Glucose 171 mg/dL (70-105); Lipase 9 Units/L (11-82); Osmolality,Calculated 273 (280-300); Potassium 3.5 mEq/L (3.5-5.1); Sodium 129 mEq/L (136-145); Total Protein 7.2 g/dL (6.4-8.9); Troponin I 0.03 ng/mL (< 0.04); eGFR For African Americans > 60 (> 60); eGFR For Non-African Americans > 60 (> 60)
[2020-12-23] MEDS ORDERED: Isovue-370 500 ML BOTTLE IVP ONE (05:01)
[2020-12-23 05:38] LABS: Influenza A PCR Negative (Negative); Influenza B PCR Negative (Negative); Resp. Syncytial Virus PCR Negative (Negative)
[2020-12-23 05:44] LABS: SARS-CoV-2 by PCR (In House) Positive (Negative)
[2020-12-23] MEDS ORDERED: Mag Hydrox/Al Hydrox/Simeth 30 ML UDC PO PRN (09:18)
[2020-12-23] MEDS ORDERED: Melatonin 3 MG TABLET PO PRN (09:18)
[2020-12-23] MEDS ORDERED: Naloxone 0.4 MG/ML INJ IVP PRN (09:18)
[2020-12-23] MEDS ORDERED: Ondansetron ODT 4 MG TAB.RAPDIS SL PRN (09:18)
[2020-12-23] MEDS ORDERED: *HR* Metoprolol 5 MG/5 ML VIAL IVP ONE (09:20)
[2020-12-23] MEDS ORDERED: Furosemide 20 MG/2 ML VIAL IVP ONE (09:25)
[2020-12-23 10:28] LABS: ABG Base Excess -7 mEq/L (-2 to 3); ABG HCO3 17 mEq/L (21-27); ABG Oxygen Saturation 90 % (95-98); ABG PCO2 30 mmHg (35-45); ABG PH 7.35 pH Units (7.32-7.45); ABG PO2 61 mmHg (85-104); ABG TCO2 18 mEq/L (20-26)
[2020-12-23] MEDS ORDERED: Dextrose Gel 15 GM/37.5 ML TUBE PO PRN ×2 (10:38)
[2020-12-23] MEDS ORDERED: D5% in Water 1,000 ML IVC PRN (10:38)
[2020-12-23] MEDS ORDERED: *HR* Dextrose 50 % in Water (Syg) 50 ML SYRINGE IVP PRN (10:38)
[2020-12-23 10:56] LABS: C-Reactive Protein 183 mg/L (Less than 10); Lactate Dehydrogenase 418 Units/L (140-271)
[2020-12-23 10:57] LABS: D-Dimer 1799 ng/mLFEU (0-500)
[2020-12-23 11:00] LABS: Fibrinogen > 1000 mg/dL (169-393)
[2020-12-23] MEDS ORDERED: *HR* OxyCODONE/APAP 10/325 TABLET PO PRN (11:09)
[2020-12-23 11:14] LABS: Ferritin 1114 ng/mL (20-250)
[2020-12-23] MEDS: Ipratropium 1 PUFF INHALER IH SCH ×4 (11:35→23:40)
[2020-12-23] MEDS: Insulin LISPRO 300 UNITS/3 ML VIAL SUBQ SCH ×3 (14:06→20:40)
[2020-12-23] MEDS: traZODone 50 MG TABLET PO SCH (20:21)
[2020-12-23] MEDS: Pregabalin 75 MG CAPSULE PO SCH (20:21)
[2020-12-24 02:56] LABS: Basophils % 0.1 %; Hematocrit 48.1 % (37.5-50.1); Hemoglobin 15.8 g/dL (12.9-16.9); Lymphocytes # 0.8 K/mcL (0.6-4.6); Lymphocytes % 5.5 %; Mean Corpuscular HGB Conc 32.8 g/dL (31.6-35.5); Mean Corpuscular Hemoglobin 26.7 pg (28.0-33.3); Mean Corpuscular Volume 81.4 fL (83.0-100.0); Mean Platelet Volume 10.6 fL (9.4-12.4); Monocytes # 0.8 K/mcL (0.0-1.3); Monocytes % 5.7 %; Neutrophils # 12.8 K/mcL (1.6-8.9); Platelet Count 236 K/mcL (140-400); Red Blood Count 5.91 M/mcL (4.19-5.50); Red Cell Distribution Width 18.1 % (11.5-14.5); Segmented Neutrophils % 87.7 %
[2020-12-24 03:00] LABS: White Blood Count 14.6 K/mcL (4.3-11.1)
[2020-12-24 03:01] LABS: Alanine Aminotransferase 15 Units/L (7-52); Albumin 3.4 g/dL (3.5-5.7); Albumin/Globulin Ratio 0.9 (1.1-2.2); Alkaline Phosphatase 48 Units/L (34-104); Aspartate Amino Transferase 33 Units/L (13-39); BUN/Creatinine Ratio 28 (6-26); Bilirubin,Total 0.4 mg/dL (0.3-1.0); Blood Urea Nitrogen 25 mg/dL (6-20); Calcium 8.7 mg/dL (8.6-10.3); Carbon Dioxide 23 mEq/L (23-29); Chloride 97 mEq/L (98-107); Globulin 3.9 g/dL (2.4-3.5); Glucose 240 mg/dL (70-105); Osmolality,Calculated 288 (280-300); Potassium 3.6 mEq/L (3.5-5.1); Sodium 133 mEq/L (136-145); Total Protein 7.3 g/dL (6.4-8.9); eGFR For African Americans > 60 (> 60); eGFR For Non-African Americans > 60 (> 60)
[2020-12-24] MEDS ORDERED: *HR* Metoprolol 5 MG/5 ML VIAL IVP ONE ×3 (03:30→05:10)
[2020-12-24] MEDS: Ipratropium 1 PUFF INHALER IH SCH ×6 (04:53→23:53)
[2020-12-24] MEDS: *HR* Enoxaparin 40 MG/0.4 ML SYRINGE SQ SCH (05:17)
[2020-12-24] MEDS ORDERED: Perflutren Lipid Microsphere 1.3 ML in 0.9 % Sodium Chloride 8.7 ML IVP PRN (08:27)
[2020-12-24] MEDS ORDERED: DilTIAZem 50 MG in 0.9 % Sodium Chloride 40 ML IVC SCH (08:30)
[2020-12-24] MEDS: Insulin LISPRO 300 UNITS/3 ML VIAL SUBQ SCH ×4 (08:32→21:41)
[2020-12-24] MEDS: Pregabalin 75 MG CAPSULE PO SCH ×2 (08:32→21:26)
[2020-12-24] MEDS: traZODone 50 MG TABLET PO SCH ×2 (08:32→21:26)
[2020-12-24] MEDS: Cyanocobalamin (B-12) 1,000 MCG TABLET PO SCH (08:32)
[2020-12-24] MEDS: Aspirin 81 MG TAB.CHEW PO SCH (08:32)
[2020-12-24] MEDS ORDERED: lisinopriL 20 MG TABLET PO SCH (09:00)
[2020-12-24] MEDS ORDERED: DilTIAZem 50 MG/50 ML IV.SOLN IVC SCH (09:00)
[2020-12-24] MEDS: 0.9 % Sodium Chloride 1,000 ML IVC SCH (17:10)
[2020-12-24] MEDS: *HR* Digoxin 0.5 MG/2 ML AMPUL IVP SCH (17:35)
[2020-12-24] MEDS ORDERED: 0.9 % Sodium Chloride 1,000 ML IVC ONE (17:41)
[2020-12-25] MEDS: *HR* Digoxin 0.5 MG/2 ML AMPUL IVP SCH ×2 (00:31→05:53)
[2020-12-25 02:04] LABS: Basophils % 0.1 %; Hematocrit 40.2 % (37.5-50.1); Immature Granulocytes % 1.1 % (0-4); Lymphocytes # 0.7 K/mcL (0.6-4.6); Lymphocytes % 5.9 %; Mean Corpuscular HGB Conc 33.6 g/dL (31.6-35.5); Mean Corpuscular Hemoglobin 27.6 pg (28.0-33.3); Mean Platelet Volume 11.2 fL (9.4-12.4); Monocytes # 0.6 K/mcL (0.0-1.3); Monocytes % 5.1 %; Neutrophils # 10.1 K/mcL (1.6-8.9); Platelet Count 245 K/mcL (140-400); Red Cell Distribution Width 17.3 % (11.5-14.5); Segmented Neutrophils % 87.8 %; White Blood Count 11.5 K/mcL (4.3-11.1)
[2020-12-25 02:06] LABS: Hemoglobin 13.5 g/dL (12.9-16.9)
[2020-12-25 02:23] LABS: Calcium 7.6 mg/dL (8.6-10.3); Magnesium 1.9 mg/dL (1.6-2.6); Potassium 3.3 mEq/L (3.5-5.1)
[2020-12-25] MEDS: Ipratropium 1 PUFF INHALER IH SCH ×6 (03:32→23:58)
[2020-12-25] MEDS: *HR* Enoxaparin 40 MG/0.4 ML SYRINGE SQ SCH (05:54)
[2020-12-25 07:43] LABS: Estimated Average Glucose 321 mg/dl; Hemoglobin A1C 12.8 %
[2020-12-25] MEDS ORDERED: 0.9 % Sodium Chloride 500 ML IVC ONE (07:45)
[2020-12-25] MEDS ORDERED: *HR* Enoxaparin 100 MG/ML SYRINGE SQ ONE (08:00)
[2020-12-25] MEDS ORDERED: *HR* Heparin 5,000 UNIT/ML VIAL IVP PRN (08:56)
[2020-12-25] MEDS: 0.9 % Sodium Chloride 1,000 ML IVC SCH (09:19)
[2020-12-25] MEDS: Insulin LISPRO 300 UNITS/3 ML VIAL SUBQ SCH ×2 (09:20→18:18)
[2020-12-25 09:31] LABS: Hematocrit 42.3 % (37.5-50.1); Hemoglobin 13.8 g/dL (12.9-16.9); Mean Corpuscular HGB Conc 32.6 g/dL (31.6-35.5); Mean Corpuscular Hemoglobin 26.6 pg (28.0-33.3); Mean Corpuscular Volume 81.7 fL (83.0-100.0); Mean Platelet Volume 10.2 fL (9.4-12.4); Platelet Count 222 K/mcL (140-400); Red Blood Count 5.18 M/mcL (4.19-5.50); Red Cell Distribution Width 17.2 % (11.5-14.5); White Blood Count 11.3 K/mcL (4.3-11.1)
[2020-12-25 09:53] LABS: Heparin anti-factor XA UFH 0.07 IU/mL (0.30-0.70)
[2020-12-25 09:54] LABS: INR 1.2; Prothrombin Time 13.3 Seconds (9.4-12.1)
[2020-12-25] MEDS: Norepinephrine 4 MG/254 ML IV.SOLN IVC SCH ×2 (11:17→23:20)
[2020-12-25] MEDS ORDERED: Amiodarone Premix 150 MG/100 ML BAG IVPB ONE (12:11)
[2020-12-25] MEDS: Heparin 25,000UNIT/250ML 1/2NS 25,000 UNIT/250 ML IV.SOLN IVC SCH ×2 (13:21→23:56)
[2020-12-25 13:23] LABS: ABG Base Excess -6 mEq/L (-2 to 3); ABG HCO3 24 mEq/L (21-27); ABG Oxygen Saturation 97 % (95-98); ABG PCO2 65 mmHg (35-45); ABG PH 7.18 pH Units (7.32-7.45); ABG PO2 117 mmHg (85-104); ABG TCO2 26 mEq/L (20-26); Blood Gas Modality ASSIST CONTROL; Blood Gas VT 450 cc
[2020-12-25] MEDS: Cyanocobalamin (B-12) 1,000 MCG TABLET PO SCH (13:25)
[2020-12-25] MEDS: Aspirin 81 MG TAB.CHEW PO SCH (13:25)
[2020-12-25] MEDS: FentaNYL (PF) 1,000 MCG/100 ML IV.SOLN IVC SCH ×4 (13:51→23:30)
[2020-12-25] MEDS ORDERED: Amiodarone Premix 360 MG/200 ML BAG IVC ONE (13:55)
[2020-12-25] MEDS ORDERED: Artificial Tears SOLN 15 ML BOTTLE BOTH EYES PRN (16:00)
[2020-12-25] MEDS: Pantoprazole 40 MG VIAL IVP SCH (16:48)
[2020-12-25] MEDS: Azithromycin 500 MG in 0.9 % Sodium Chloride 250 ML IVPB SCH (16:48)
[2020-12-25] MEDS: cefTRIAXone 2,000 MG in Water for inj. (sterile) 20 ML IVP SCH (16:48)
[2020-12-25] MEDS: Artificial Tears SOLN 15 ML BOTTLE BOTH EYES SCH ×3 (16:48→23:58)
[2020-12-25] MEDS ORDERED: *HR* Etomidate 20 MG/10 ML AMPUL IVP ONE (17:35)
[2020-12-25] MEDS ORDERED: *HR* Rocuronium Bromide 50 MG/5 ML VIAL IVP ONE (17:35)
[2020-12-25] MEDS ORDERED: *HR* Midazolam HCl 5 MG/5 ML VIAL IVP ONE (17:35)
[2020-12-25] MEDS ORDERED: *HR* Midazolam HCl 2 MG/2 ML VIAL IVP ONE (17:35)
[2020-12-25 17:37] LABS: Bacteria,Urine Few per hpf (None-Few); Bilirubin,Urine Negative (Negative); Blood,Urine Large (Negative); Budding Yeast,Urine Many per hpf (None Seen); Clarity,Urine Turbid (Clear); Color,Urine Yellow (Yellow); Glucose,Urine (UA) 50 mg/dL (Normal); Ketones,Urine Negative (Negative); Leukocyte Esterase,Urine Small (Negative); Mucus,Urine Few per lpf (None-Few); Nitrite,Urine Negative (Negative); PH,Urine 5.5 pH Units (5.0-8.0); Protein,Urine 100 mg/dL (Neg-Trace); RBC,Urine TNTC per hpf (0-3); Specific Gravity,Urine 1.024 (1.010-1.025); WBC,Urine 30-50 per hpf (0-3)
[2020-12-25 17:59] LABS: Protein/Creatinine Ratio,Urine 1.44 mg/mg (0.00-0.20); Sodium, Urine 27.8 mEq/L
[2020-12-25] MEDS ORDERED: *HR* Enoxaparin 150 MG/ML SYRINGE SQ SCH (18:00)
[2020-12-25] MEDS: Midazolam HCl 50 MG/100 ML IV.SOLN IVC SCH (18:11)
[2020-12-25] MEDS: Cisatracurium 200 MG in 0.9 % Sodium Chloride 180 ML IVC SCH (18:13)
[2020-12-25] MEDS: Amiodarone Premix 360 MG/200 ML BAG IVC SCH (19:46)
[2020-12-25] MEDS: Chlorhexidine Rinse 15 ML MOUTHWASH MM SCH (21:14)
[2020-12-25 23:09] LABS: ABG Base Excess -8 mEq/L (-2 to 3); ABG HCO3 20 mEq/L (21-27); ABG Oxygen Saturation 96 % (95-98); ABG PCO2 49 mmHg (35-45); ABG PH 7.22 pH Units (7.32-7.45); ABG PO2 96 mmHg (85-104); ABG TCO2 22 mEq/L (20-26); Blood Gas Modality ASSIST CONTROL; Blood Gas VT 450 cc
[2020-12-26] MEDS: Insulin LISPRO 300 UNITS/3 ML VIAL SUBQ SCH ×6 (00:02→23:27)
[2020-12-26] MEDS: Artificial Tears SOLN 15 ML BOTTLE BOTH EYES SCH ×6 (03:23→23:26)
[2020-12-26] MEDS: Ipratropium 1 PUFF INHALER IH SCH ×6 (03:45→23:58)
[2020-12-26 04:10] LABS: Basophils % 0.2 %; Hematocrit 53.4 % (37.5-50.1); Immature Granulocytes % 1.3 % (0-4); Lymphocytes # 0.4 K/mcL (0.6-4.6); Lymphocytes % 2.5 %; Mean Corpuscular HGB Conc 31.3 g/dL (31.6-35.5); Mean Corpuscular Hemoglobin 26.3 pg (28.0-33.3); Mean Corpuscular Volume 84.1 fL (83.0-100.0); Mean Platelet Volume 10.8 fL (9.4-12.4); Monocytes # 0.4 K/mcL (0.0-1.3); Monocytes % 2.8 %; Platelet Count 246 K/mcL (140-400); Red Blood Count 6.35 M/mcL (4.19-5.50); Segmented Neutrophils % 93.2 %
[2020-12-26 04:11] LABS: Hemoglobin 16.7 g/dL (12.9-16.9)
[2020-12-26 04:26] LABS: Magnesium 2.3 mg/dL (1.6-2.6)
[2020-12-26 04:50] LABS: ABG Base Excess -7 mEq/L (-2 to 3); ABG HCO3 20 mEq/L (21-27); ABG Oxygen Saturation 96 % (95-98); ABG PCO2 46 mmHg (35-45); ABG PH 7.25 pH Units (7.32-7.45); ABG PO2 94 mmHg (85-104); ABG TCO2 22 mEq/L (20-26); Blood Gas Modality ASSIST CONTROL; Blood Gas VT 450 cc
[2020-12-26] MEDS: Cisatracurium 200 MG in 0.9 % Sodium Chloride 180 ML IVC SCH ×2 (05:00→20:10)
[2020-12-26] MEDS: Midazolam HCl 50 MG/100 ML IV.SOLN IVC SCH ×2 (05:15→21:00)
[2020-12-26] MEDS: FentaNYL (PF) 1,000 MCG/100 ML IV.SOLN IVC SCH ×3 (05:26→20:10)
[2020-12-26] MEDS: Cyanocobalamin (B-12) 1,000 MCG TABLET PO SCH (08:35)
[2020-12-26] MEDS: Pantoprazole 40 MG VIAL IVP SCH (08:35)
[2020-12-26] MEDS: Chlorhexidine Rinse 15 ML MOUTHWASH MM SCH ×2 (08:35→21:57)
[2020-12-26] MEDS: Aspirin 81 MG TAB.CHEW PO SCH (08:35)
[2020-12-26] MEDS: Heparin 25,000UNIT/250ML 1/2NS 25,000 UNIT/250 ML IV.SOLN IVC SCH ×2 (12:31→21:49)
[2020-12-26] MEDS: Norepinephrine 4 MG/254 ML IV.SOLN IVC SCH (14:39)
[2020-12-26] MEDS: cefTRIAXone 2,000 MG in Water for inj. (sterile) 20 ML IVP SCH (15:10)
[2020-12-26] MEDS: Azithromycin 500 MG in 0.9 % Sodium Chloride 250 ML IVPB SCH (15:11)
[2020-12-26] MEDS: Amiodarone Premix 360 MG/200 ML BAG IVC SCH (16:28)
[2020-12-26] MEDS: Insulin DETEMIR 100 UNIT/ML X5UNITS SUBQ SCH (21:57)
[2020-12-26] MEDS ORDERED: *HR* Metoprolol 5 MG/5 ML VIAL IVP PRN (22:47)
[2020-12-27 00:13] LABS: ABG Base Excess -4 mEq/L (-2 to 3); ABG HCO3 24 mEq/L (21-27); ABG Oxygen Saturation 100 % (95-98); ABG PCO2 52 mmHg (35-45); ABG PH 7.27 pH Units (7.32-7.45); ABG PO2 399 mmHg (85-104); ABG TCO2 25 mEq/L (20-26); Blood Gas Modality ASSIST CONTROL; Blood Gas VT 450 cc
[2020-12-27] MEDS: Norepinephrine 4 MG/254 ML IV.SOLN IVC SCH ×2 (01:21→16:18)
[2020-12-27] MEDS: FentaNYL (PF) 1,000 MCG/100 ML IV.SOLN IVC SCH ×4 (02:15→23:03)
[2020-12-27 02:32] LABS: Basophils # 0.1 K/mcL (0.0-0.2); Basophils % 0.3 %; Hematocrit 42.2 % (37.5-50.1); Lymphocytes # 0.6 K/mcL (0.6-4.6); Lymphocytes % 2.8 %; Mean Corpuscular HGB Conc 32.2 g/dL (31.6-35.5); Mean Corpuscular Hemoglobin 26.4 pg (28.0-33.3); Mean Corpuscular Volume 81.9 fL (83.0-100.0); Mean Platelet Volume 10.4 fL (9.4-12.4); Neutrophils # 17.8 K/mcL (1.6-8.9); Platelet Count 277 K/mcL (140-400); Red Blood Count 5.15 M/mcL (4.19-5.50); Red Cell Distribution Width 17.9 % (11.5-14.5); Segmented Neutrophils % 89.9 %; White Blood Count 19.8 K/mcL (4.3-11.1)
[2020-12-27 02:50] LABS: Calcium 7.9 mg/dL (8.6-10.3); Magnesium 2.3 mg/dL (1.6-2.6); Potassium 3.4 mEq/L (3.5-5.1)
[2020-12-27 02:51] LABS: Albumin 2.9 g/dL (3.5-5.7); Albumin/Globulin Ratio 0.7 (1.1-2.2); Bilirubin,Direct 0.1 mg/dL (0.0-0.2); Bilirubin,Indirect 0.2 mg/dL (0.0-1.0); Bilirubin,Total 0.3 mg/dL (0.3-1.0); Globulin 4.1 g/dL (2.4-3.5); Phosphorous 2.8 mg/dL (2.7-4.5)
[2020-12-27 02:53] LABS: Hemoglobin 13.6 g/dL (12.9-16.9)
[2020-12-27 02:55] LABS: Heparin anti-factor XA UFH 0.52 IU/mL (0.30-0.70)
[2020-12-27 02:56] LABS: INR 1.1; Prothrombin Time 12.5 Seconds (9.4-12.1)
[2020-12-27] MEDS: Artificial Tears SOLN 15 ML BOTTLE BOTH EYES SCH ×6 (03:27→23:04)
[2020-12-27] MEDS: Insulin LISPRO 300 UNITS/3 ML VIAL SUBQ SCH ×5 (03:29→20:00)
[2020-12-27] MEDS: Ipratropium 1 PUFF INHALER IH SCH ×6 (03:56→23:36)
[2020-12-27 04:13] LABS: ABG Base Excess -4 mEq/L (-2 to 3); ABG HCO3 24 mEq/L (21-27); ABG Oxygen Saturation 100 % (95-98); ABG PCO2 50 mmHg (35-45); ABG PH 7.28 pH Units (7.32-7.45); ABG PO2 251 mmHg (85-104); ABG TCO2 25 mEq/L (20-26); Blood Gas Modality ASSIST CONTROL; Blood Gas VT 450 cc
[2020-12-27] MEDS: Chlorhexidine Rinse 15 ML MOUTHWASH MM SCH ×2 (08:04→19:59)
[2020-12-27] MEDS: Aspirin 81 MG TAB.CHEW PO SCH (08:04)
[2020-12-27] MEDS: Dexamethasone Sodium Phos/PF 10 MG/ML VIAL IVP SCH (08:05)
[2020-12-27] MEDS: Pantoprazole 40 MG VIAL IVP SCH (08:05)
[2020-12-27] MEDS: Cyanocobalamin (B-12) 1,000 MCG TABLET PO SCH (08:05)
[2020-12-27] MEDS: Insulin DETEMIR 100 UNIT/ML X5UNITS SUBQ SCH ×2 (08:06→20:03)
[2020-12-27] MEDS: Heparin 25,000UNIT/250ML 1/2NS 25,000 UNIT/250 ML IV.SOLN IVC SCH ×2 (12:21)
[2020-12-27] MEDS: Midazolam HCl 50 MG/100 ML IV.SOLN IVC SCH (14:55)
[2020-12-27] MEDS ORDERED: Lidocaine -MPF 1% 5 ML AMPUL INFILT ONE (15:48)
[2020-12-27] MEDS: cefTRIAXone 2,000 MG in Water for inj. (sterile) 20 ML IVP SCH (16:17)
[2020-12-27] MEDS: Azithromycin 500 MG in 0.9 % Sodium Chloride 250 ML IVPB SCH (16:17)
[2020-12-27] MEDS: Cisatracurium 200 MG in 0.9 % Sodium Chloride 180 ML IVC SCH (17:29)
[2020-12-27] MEDS: Amiodarone Premix 360 MG/200 ML BAG IVC SCH (20:54)
[2020-12-27 22:19] LABS: ABG Base Excess -4 mEq/L (-2 to 3); ABG HCO3 21 mEq/L (21-27); ABG Oxygen Saturation 96 % (95-98); ABG PCO2 35 mmHg (35-45); ABG PH 7.38 pH Units (7.32-7.45); ABG PO2 84 mmHg (85-104); ABG TCO2 22 mEq/L (20-26); Blood Gas Modality ASSIST CONTROL; Blood Gas VT 450 cc
[2020-12-28] MEDS: Insulin LISPRO 300 UNITS/3 ML VIAL SUBQ SCH ×6 (00:15→20:38)
[2020-12-28] MEDS: Heparin 25,000UNIT/250ML 1/2NS 25,000 UNIT/250 ML IV.SOLN IVC SCH (00:36)
[2020-12-28] MEDS: Ipratropium 1 PUFF INHALER IH SCH ×6 (03:55→23:26)
[2020-12-28 03:59] LABS: ABG Base Excess -3 mEq/L (-2 to 3); ABG HCO3 24 mEq/L (21-27); ABG Oxygen Saturation 98 % (95-98); ABG PCO2 47 mmHg (35-45); ABG PH 7.31 pH Units (7.32-7.45); ABG PO2 122 mmHg (85-104); ABG TCO2 25 mEq/L (20-26); Blood Gas Modality AF; Blood Gas VT 450 cc
[2020-12-28 04:41] LABS: Basophils # 0.1 K/mcL (0.0-0.2); Basophils % 0.3 %; Hematocrit 44.9 % (37.5-50.1); Hemoglobin 14.7 g/dL (12.9-16.9); Immature Granulocytes % 3.7 % (0-4); Lymphocytes # 0.5 K/mcL (0.6-4.6); Lymphocytes % 2.4 %; Mean Corpuscular HGB Conc 32.7 g/dL (31.6-35.5); Mean Corpuscular Hemoglobin 26.8 pg (28.0-33.3); Mean Corpuscular Volume 81.8 fL (83.0-100.0); Mean Platelet Volume 10.7 fL (9.4-12.4); Monocytes # 1.5 K/mcL (0.0-1.3); Monocytes % 6.9 %; Neutrophils # 19.5 K/mcL (1.6-8.9); Platelet Count 309 K/mcL (140-400); Red Blood Count 5.49 M/mcL (4.19-5.50); Red Cell Distribution Width 18.5 % (11.5-14.5); Segmented Neutrophils % 86.7 %; White Blood Count 22.5 K/mcL (4.3-11.1)
[2020-12-28] MEDS: Artificial Tears SOLN 15 ML BOTTLE BOTH EYES SCH ×5 (04:41→20:39)
[2020-12-28] MEDS: Midazolam HCl 50 MG/100 ML IV.SOLN IVC SCH ×2 (04:42→17:15)
[2020-12-28 04:50] LABS: Heparin anti-factor XA UFH 0.41 IU/mL (0.30-0.70); INR 1.1; Prothrombin Time 12.1 Seconds (9.4-12.1)
[2020-12-28 04:53] LABS: VBG Ionized Calcium 1.15 mmol/L (1.15-1.35)
[2020-12-28 04:58] LABS: Albumin 2.9 g/dL (3.5-5.7); Albumin/Globulin Ratio 0.7 (1.1-2.2); Bilirubin,Direct 0.2 mg/dL (0.0-0.2); Bilirubin,Indirect 0.2 mg/dL (0.0-1.0); Bilirubin,Total 0.4 mg/dL (0.3-1.0); Phosphorous 2.4 mg/dL (2.7-4.5); Total Protein 6.9 g/dL (6.4-8.9)
[2020-12-28 04:59] LABS: BUN/Creatinine Ratio 48 (6-26); Blood Urea Nitrogen 56 mg/dL (6-20); C-Reactive Protein 58 mg/L (Less than 10); Calcium 8.1 mg/dL (8.6-10.3); Carbon Dioxide 24 mEq/L (23-29); Chloride 107 mEq/L (98-107); Glucose 285 mg/dL (70-105); Osmolality,Calculated 316 (280-300); Potassium 3.6 mEq/L (3.5-5.1); Sodium 140 mEq/L (136-145); eGFR For African Americans > 60 (> 60); eGFR For Non-African Americans > 60 (> 60)
[2020-12-28] MEDS: Insulin DETEMIR 100 UNIT/ML X5UNITS SUBQ SCH ×2 (08:25→20:40)
[2020-12-28] MEDS: Pantoprazole 40 MG VIAL IVP SCH (08:25)
[2020-12-28] MEDS: Chlorhexidine Rinse 15 ML MOUTHWASH MM SCH ×2 (08:25→20:38)
[2020-12-28] MEDS: Aspirin 81 MG TAB.CHEW PO SCH (08:26)
[2020-12-28] MEDS: Furosemide 20 MG/2 ML VIAL IVP SCH ×2 (08:26→20:38)
[2020-12-28] MEDS: Cyanocobalamin (B-12) 1,000 MCG TABLET PO SCH (08:26)
[2020-12-28] MEDS: Dexamethasone Sodium Phos/PF 10 MG/ML VIAL IVP SCH (08:26)
[2020-12-28] MEDS: Norepinephrine 4 MG/254 ML IV.SOLN IVC SCH (08:27)
[2020-12-28] MEDS: Cisatracurium 200 MG in 0.9 % Sodium Chloride 180 ML IVC SCH (09:06)
[2020-12-28] MEDS: Amiodarone Premix 360 MG/200 ML BAG IVC SCH ×2 (09:06→21:06)
[2020-12-28] MEDS ORDERED: Insulin DETEMIR 100 UNIT/ML X5UNITS SUBQ ONE (13:19)
[2020-12-28] MEDS: FentaNYL (PF) 1,000 MCG/100 ML IV.SOLN IVC SCH ×2 (15:40→22:44)
[2020-12-29] MEDS: Artificial Tears SOLN 15 ML BOTTLE BOTH EYES SCH ×7 (00:05→23:46)
[2020-12-29] MEDS: Insulin LISPRO 300 UNITS/3 ML VIAL SUBQ SCH ×7 (00:09→23:46)
[2020-12-29] MEDS: Ipratropium 1 PUFF INHALER IH SCH ×6 (04:04→23:26)
[2020-12-29 04:11] LABS: ABG Base Excess -2 mEq/L (-2 to 3); ABG HCO3 23 mEq/L (21-27); ABG Oxygen Saturation 95 % (95-98); ABG PCO2 41 mmHg (35-45); ABG PH 7.36 pH Units (7.32-7.45); ABG PO2 79 mmHg (85-104); ABG TCO2 24 mEq/L (20-26); Blood Gas Modality ASSIST CONTROL; Blood Gas VT 450 cc
[2020-12-29] MEDS: Heparin 25,000UNIT/250ML 1/2NS 25,000 UNIT/250 ML IV.SOLN IVC SCH ×2 (04:43→15:15)
[2020-12-29] MEDS: Norepinephrine 4 MG/254 ML IV.SOLN IVC SCH ×2 (04:44→09:13)
[2020-12-29] MEDS: Midazolam HCl 50 MG/100 ML IV.SOLN IVC SCH ×2 (04:47→16:06)
[2020-12-29] MEDS: FentaNYL (PF) 1,000 MCG/100 ML IV.SOLN IVC SCH ×3 (04:48→19:24)
[2020-12-29 05:32] LABS: Basophils # 0.1 K/mcL (0.0-0.2); Basophils % 0.3 %; Hematocrit 45.7 % (37.5-50.1); Hemoglobin 14.6 g/dL (12.9-16.9); Immature Granulocytes % 4.7 % (0-4); Lymphocytes # 0.5 K/mcL (0.6-4.6); Lymphocytes % 2.1 %; Mean Corpuscular HGB Conc 31.9 g/dL (31.6-35.5); Mean Corpuscular Hemoglobin 26.3 pg (28.0-33.3); Mean Corpuscular Volume 82.3 fL (83.0-100.0); Mean Platelet Volume 10.9 fL (9.4-12.4); Monocytes % 8.4 %; Neutrophils # 20.3 K/mcL (1.6-8.9); Platelet Count 320 K/mcL (140-400); Red Blood Count 5.55 M/mcL (4.19-5.50); Red Cell Distribution Width 18.5 % (11.5-14.5); Segmented Neutrophils % 84.5 %
[2020-12-29 05:54] LABS: BUN/Creatinine Ratio 69 (6-26); Blood Urea Nitrogen 69 mg/dL (6-20); C-Reactive Protein 43 mg/L (Less than 10); Calcium 8.1 mg/dL (8.6-10.3); Carbon Dioxide 22 mEq/L (23-29); Chloride 108 mEq/L (98-107); Glucose 266 mg/dL (70-105); Osmolality,Calculated 317 (280-300); Potassium 3.8 mEq/L (3.5-5.1); Sodium 139 mEq/L (136-145); eGFR For African Americans > 60 (> 60); eGFR For Non-African Americans > 60 (> 60)
[2020-12-29 05:54] LABS: VBG Ionized Calcium 1.08 mmol/L (1.15-1.35)
[2020-12-29] MEDS: Insulin DETEMIR 100 UNIT/ML X5UNITS SUBQ SCH ×2 (07:51→19:59)
[2020-12-29] MEDS: Dexamethasone Sodium Phos/PF 10 MG/ML VIAL IVP SCH (07:51)
[2020-12-29] MEDS: Chlorhexidine Rinse 15 ML MOUTHWASH MM SCH ×2 (07:51→19:57)
[2020-12-29] MEDS: Cyanocobalamin (B-12) 1,000 MCG TABLET PO SCH (07:52)
[2020-12-29] MEDS: Furosemide 20 MG/2 ML VIAL IVP SCH ×2 (07:52→19:57)
[2020-12-29] MEDS: Aspirin 81 MG TAB.CHEW PO SCH (07:52)
[2020-12-29] MEDS: Pantoprazole 40 MG VIAL IVP SCH (07:52)
[2020-12-29 08:40] LABS: Alanine Aminotransferase 14 Units/L (7-52); Albumin/Globulin Ratio 0.8 (1.1-2.2); Alkaline Phosphatase 49 Units/L (34-104); Aspartate Amino Transferase 19 Units/L (13-39); Bilirubin,Direct 0.1 mg/dL (0.0-0.2); Bilirubin,Indirect 0.3 mg/dL (0.0-1.0); Bilirubin,Total 0.4 mg/dL (0.3-1.0); Phosphorous 2.9 mg/dL (2.7-4.5)
[2020-12-29 09:03] LABS: INR 1.3; Prothrombin Time 14.3 Seconds (9.4-12.1)
[2020-12-29] MEDS: Amiodarone Premix 360 MG/200 ML BAG IVC SCH (09:12)
[2020-12-30] MEDS: FentaNYL (PF) 1,000 MCG/100 ML IV.SOLN IVC SCH ×4 (02:45→23:40)
[2020-12-30] MEDS: Heparin 25,000UNIT/250ML 1/2NS 25,000 UNIT/250 ML IV.SOLN IVC SCH ×3 (03:36→19:41)
[2020-12-30] MEDS: Norepinephrine 4 MG/254 ML IV.SOLN IVC SCH (03:37)
[2020-12-30] MEDS: Artificial Tears SOLN 15 ML BOTTLE BOTH EYES SCH ×6 (03:37→23:13)
[2020-12-30] MEDS: Insulin LISPRO 300 UNITS/3 ML VIAL SUBQ SCH ×6 (03:37→23:42)
[2020-12-30] MEDS: Ipratropium 1 PUFF INHALER IH SCH ×6 (03:44→23:29)
[2020-12-30 04:13] LABS: ABG Base Excess -1 mEq/L (-2 to 3); ABG HCO3 24 mEq/L (21-27); ABG Oxygen Saturation 95 % (95-98); ABG PCO2 42 mmHg (35-45); ABG PH 7.37 pH Units (7.32-7.45); ABG PO2 79 mmHg (85-104); ABG TCO2 26 mEq/L (20-26); Blood Gas VT 450 cc
[2020-12-30 04:18] LABS: Hematocrit 44.5 % (37.5-50.1); Mean Corpuscular HGB Conc 31.5 g/dL (31.6-35.5); Mean Corpuscular Hemoglobin 26.1 pg (28.0-33.3); Mean Corpuscular Volume 82.9 fL (83.0-100.0); Mean Platelet Volume 10.7 fL (9.4-12.4); Platelet Count 304 K/mcL (140-400); Red Blood Count 5.37 M/mcL (4.19-5.50); Red Cell Distribution Width 18.6 % (11.5-14.5); White Blood Count 24.4 K/mcL (4.3-11.1)
[2020-12-30 04:22] LABS: VBG Ionized Calcium 1.16 mmol/L (1.15-1.35)
[2020-12-30 04:25] LABS: Heparin anti-factor XA UFH 0.48 IU/mL (0.30-0.70)
[2020-12-30 04:26] LABS: INR 1.2; Prothrombin Time 13.1 Seconds (9.4-12.1)
[2020-12-30 04:35] LABS: Alanine Aminotransferase 11 Units/L (7-52); Albumin 2.8 g/dL (3.5-5.7); Albumin/Globulin Ratio 0.7 (1.1-2.2); Alkaline Phosphatase 45 Units/L (34-104); Aspartate Amino Transferase 11 Units/L (13-39); BUN/Creatinine Ratio 86 (6-26); Bilirubin,Direct 0.1 mg/dL (0.0-0.2); Bilirubin,Indirect 0.3 mg/dL (0.0-1.0); Bilirubin,Total 0.4 mg/dL (0.3-1.0); Blood Urea Nitrogen 75 mg/dL (6-20); C-Reactive Protein 57 mg/L (Less than 10); Calcium 8.2 mg/dL (8.6-10.3); Carbon Dioxide 23 mEq/L (23-29); Chloride 110 mEq/L (98-107); Glucose 237 mg/dL (70-105); Magnesium 2.5 mg/dL (1.6-2.6); Osmolality,Calculated 322 (280-300); Phosphorous 3.1 mg/dL (2.7-4.5); Potassium 3.7 mEq/L (3.5-5.1); Sodium 141 mEq/L (136-145); Total Protein 6.8 g/dL (6.4-8.9); eGFR For African Americans > 60 (> 60); eGFR For Non-African Americans > 60 (> 60)
[2020-12-30 05:12] LABS: Lymphocytes # 0.5 K/mcL (0.6-4.6); Monocytes # 2.4 K/mcL (0.0-1.3); Neutrophils # 21.5 K/mcL (1.6-8.9); Platelet Estimate Normal (Normal)
[2020-12-30] MEDS: Midazolam HCl 50 MG/100 ML IV.SOLN IVC SCH ×2 (05:15→13:45)
[2020-12-30] MEDS ORDERED: Potassium Chloride Elixir 20 MEQ/15 ML UDC GTUBE ONE (07:36)
[2020-12-30] MEDS: Pantoprazole 40 MG VIAL IVP SCH (08:53)
[2020-12-30] MEDS: Insulin DETEMIR 100 UNIT/ML X5UNITS SUBQ SCH ×2 (08:53→19:54)
[2020-12-30] MEDS: Cyanocobalamin (B-12) 1,000 MCG TABLET PO SCH (08:53)
[2020-12-30] MEDS: Aspirin 81 MG TAB.CHEW PO SCH (08:53)
[2020-12-30] MEDS: Chlorhexidine Rinse 15 ML MOUTHWASH MM SCH ×2 (08:55→19:53)
[2020-12-30] MEDS: Dexamethasone Sodium Phos/PF 10 MG/ML VIAL IVP SCH (08:56)
[2020-12-30] MEDS: Furosemide 20 MG/2 ML VIAL IVP SCH ×2 (08:57→19:54)
[2020-12-30] MEDS: Dexmedetomidine HCl 400 MCG/100 ML MLS IVC SCH (16:07)
[2020-12-30] MEDS: Amiodarone Premix 360 MG/200 ML BAG IVC SCH (18:15)
[2020-12-30] MEDS: Cisatracurium 200 MG in 0.9 % Sodium Chloride 180 ML IVC SCH (19:40)
[2020-12-31] MEDS: Heparin 25,000UNIT/250ML 1/2NS 25,000 UNIT/250 ML IV.SOLN IVC SCH ×2 (02:30→15:58)
[2020-12-31] MEDS: Midazolam HCl 50 MG/100 ML IV.SOLN IVC SCH (02:30)
[2020-12-31] MEDS: Dexmedetomidine HCl 400 MCG/100 ML MLS IVC SCH ×4 (02:30→23:27)
[2020-12-31] MEDS: Ipratropium 1 PUFF INHALER IH SCH ×6 (03:15→23:30)
[2020-12-31] MEDS: Insulin LISPRO 300 UNITS/3 ML VIAL SUBQ SCH ×5 (04:19→20:31)
[2020-12-31] MEDS: Artificial Tears SOLN 15 ML BOTTLE BOTH EYES SCH ×6 (04:19→23:27)
[2020-12-31 04:24] LABS: Hematocrit 44.1 % (37.5-50.1); Hemoglobin 13.9 g/dL (12.9-16.9); Mean Corpuscular HGB Conc 31.5 g/dL (31.6-35.5); Mean Corpuscular Hemoglobin 26.5 pg (28.0-33.3); Platelet Count 264 K/mcL (140-400); Red Blood Count 5.25 M/mcL (4.19-5.50); Red Cell Distribution Width 18.6 % (11.5-14.5); White Blood Count 20.1 K/mcL (4.3-11.1)
[2020-12-31 04:35] LABS: Heparin anti-factor XA UFH 0.42 IU/mL (0.30-0.70); INR 1.2; Prothrombin Time 13.8 Seconds (9.4-12.1)
[2020-12-31 04:50] LABS: ABG Base Excess 2 mEq/L (-2 to 3); ABG HCO3 26 mEq/L (21-27); ABG Oxygen Saturation 94 % (95-98); ABG PCO2 41 mmHg (35-45); ABG PH 7.42 pH Units (7.32-7.45); ABG PO2 70 mmHg (85-104); ABG TCO2 28 mEq/L (20-26); Blood Gas VT 450 cc
[2020-12-31 04:57] LABS: VBG Ionized Calcium 1.13 mmol/L (1.15-1.35)
[2020-12-31 05:22] LABS: Albumin 2.7 g/dL (3.5-5.7); Albumin/Globulin Ratio 0.7 (1.1-2.2); Bilirubin,Direct 0.2 mg/dL (0.0-0.2); Bilirubin,Indirect 0.2 mg/dL (0.0-1.0); Bilirubin,Total 0.4 mg/dL (0.3-1.0); Globulin 3.9 g/dL (2.4-3.5); Phosphorous 2.6 mg/dL (2.7-4.5); Total Protein 6.6 g/dL (6.4-8.9)
[2020-12-31 05:23] LABS: BUN/Creatinine Ratio 89 (6-26); Blood Urea Nitrogen 64 mg/dL (6-20); C-Reactive Protein 56 mg/L (Less than 10); Calcium 8.2 mg/dL (8.6-10.3); Carbon Dioxide 24 mEq/L (23-29); Chloride 112 mEq/L (98-107); Glucose 271 mg/dL (70-105); Osmolality,Calculated 324 (280-300); Potassium 4.1 mEq/L (3.5-5.1); Sodium 143 mEq/L (136-145); eGFR For African Americans > 60 (> 60); eGFR For Non-African Americans > 60 (> 60)
[2020-12-31 05:42] LABS: Monocytes # 1.2 K/mcL (0.0-1.3); Neutrophils # 18.9 K/mcL (1.6-8.9)
[2020-12-31 05:43] LABS: Anisocytosis 1+ (Not Present); Platelet Estimate Normal (Normal)
[2020-12-31] MEDS: Amiodarone Premix 360 MG/200 ML BAG IVC SCH ×2 (05:45→17:03)
[2020-12-31] MEDS: FentaNYL (PF) 1,000 MCG/100 ML IV.SOLN IVC SCH ×3 (06:10→20:30)
[2020-12-31] MEDS: Cyanocobalamin (B-12) 1,000 MCG TABLET PO SCH (08:57)
[2020-12-31] MEDS: Dexamethasone Sodium Phos/PF 10 MG/ML VIAL IVP SCH (08:57)
[2020-12-31] MEDS: Furosemide 20 MG/2 ML VIAL IVP SCH ×2 (08:57→20:29)
[2020-12-31] MEDS: Pantoprazole 40 MG VIAL IVP SCH (08:57)
[2020-12-31] MEDS: Chlorhexidine Rinse 15 ML MOUTHWASH MM SCH ×2 (08:57→20:29)
[2020-12-31] MEDS: Aspirin 81 MG TAB.CHEW PO SCH (08:57)
[2020-12-31] MEDS: Insulin DETEMIR 100 UNIT/ML X5UNITS SUBQ SCH ×2 (08:58→20:29)
[2020-12-31] MEDS: Cisatracurium 200 MG in 0.9 % Sodium Chloride 180 ML IVC SCH (17:03)
[2021-01-01] MEDS: Insulin LISPRO 300 UNITS/3 ML VIAL SUBQ SCH ×7 (00:18→23:19)
[2021-01-01] MEDS: Dexmedetomidine HCl 400 MCG/100 ML MLS IVC SCH ×5 (03:30→20:55)
[2021-01-01] MEDS: FentaNYL (PF) 1,000 MCG/100 ML IV.SOLN IVC SCH ×4 (03:30→23:42)
[2021-01-01] MEDS: Ipratropium 1 PUFF INHALER IH SCH ×6 (03:51→23:27)
[2021-01-01] MEDS: Heparin 25,000UNIT/250ML 1/2NS 25,000 UNIT/250 ML IV.SOLN IVC SCH ×2 (04:00→14:24)
[2021-01-01] MEDS: Amiodarone Premix 360 MG/200 ML BAG IVC SCH ×2 (04:09→14:42)
[2021-01-01] MEDS: Artificial Tears SOLN 15 ML BOTTLE BOTH EYES SCH ×6 (04:10→23:18)
[2021-01-01 04:20] LABS: Basophils # 0.1 K/mcL (0.0-0.2); Basophils % 0.6 %; Hematocrit 44.9 % (37.5-50.1); Hemoglobin 14.3 g/dL (12.9-16.9); Immature Granulocytes % 7.6 % (0-4); Lymphocytes # 0.8 K/mcL (0.6-4.6); Lymphocytes % 3.7 %; Mean Corpuscular HGB Conc 31.8 g/dL (31.6-35.5); Mean Corpuscular Hemoglobin 27.1 pg (28.0-33.3); Mean Corpuscular Volume 85.2 fL (83.0-100.0); Mean Platelet Volume 11.2 fL (9.4-12.4); Monocytes # 1.9 K/mcL (0.0-1.3); Monocytes % 9.2 %; Neutrophils # 16.5 K/mcL (1.6-8.9); Platelet Count 268 K/mcL (140-400); Red Blood Count 5.27 M/mcL (4.19-5.50); Red Cell Distribution Width 18.6 % (11.5-14.5); Segmented Neutrophils % 78.9 %; White Blood Count 20.9 K/mcL (4.3-11.1)
[2021-01-01 04:26] LABS: ABG Base Excess 1 mEq/L (-2 to 3); ABG HCO3 26 mEq/L (21-27); ABG Oxygen Saturation 91 % (95-98); ABG PCO2 39 mmHg (35-45); ABG PH 7.42 pH Units (7.32-7.45); ABG PO2 59 mmHg (85-104); ABG TCO2 27 mEq/L (20-26); Blood Gas VT 450 cc
[2021-01-01 04:28] LABS: VBG Ionized Calcium 1.06 mmol/L (1.15-1.35)
[2021-01-01 05:23] LABS: BUN/Creatinine Ratio 70 (6-26); Blood Urea Nitrogen 47 mg/dL (6-20); Calcium 8.4 mg/dL (8.6-10.3); Carbon Dioxide 26 mEq/L (23-29); Chloride 111 mEq/L (98-107); Glucose 307 mg/dL (70-105); Osmolality,Calculated 324 (280-300); Phosphorous 2.9 mg/dL (2.7-4.5); Potassium 4.2 mEq/L (3.5-5.1); Sodium 145 mEq/L (136-145); eGFR For African Americans > 60 (> 60); eGFR For Non-African Americans > 60 (> 60)
[2021-01-01] MEDS: *HR* Heparin 5,000 UNIT/ML VIAL IVP PRN ×2 (07:08→21:56)
[2021-01-01] MEDS: Piperacillin/Tazobactam 3.375 GM in 0.9 % Sodium Chloride Mini Bag 100 ML IVPB SCH ×3 (08:58→23:20)
[2021-01-01] MEDS: Chlorhexidine Rinse 15 ML MOUTHWASH MM SCH ×2 (09:37→19:52)
[2021-01-01] MEDS: Pantoprazole 40 MG VIAL IVP SCH (09:38)
[2021-01-01] MEDS: Insulin DETEMIR 100 UNIT/ML X5UNITS SUBQ SCH ×2 (09:38→19:55)
[2021-01-01] MEDS: Aspirin 81 MG TAB.CHEW PO SCH (09:38)
[2021-01-01] MEDS: Dexamethasone Sodium Phos/PF 10 MG/ML VIAL IVP SCH (09:38)
[2021-01-01] MEDS: Furosemide 20 MG/2 ML VIAL IVP SCH ×2 (09:38→19:52)
[2021-01-01] MEDS: Cyanocobalamin (B-12) 1,000 MCG TABLET PO SCH (09:39)
[2021-01-01] MEDS: Calcium Gluconate 1gm/50mL 1 GM/50 ML BAG IVPB ONE (11:16)
[2021-01-01 14:37] LABS: VBG Ionized Calcium 1.08 mmol/L (1.15-1.35)
[2021-01-01] MEDS: Cisatracurium 200 MG in 0.9 % Sodium Chloride 180 ML IVC SCH (16:32)
[2021-01-01 18:54] LABS: Appearance of Body Fluid Cloudy (Clear)
[2021-01-01 18:56] LABS: Volume of Body Fluid 17 mL
[2021-01-02] MEDS: Calcium Gluconate 1gm/50mL 1 GM/50 ML BAG IVPB ONE (01:30)
[2021-01-02] MEDS: Dexmedetomidine HCl 400 MCG/100 ML MLS IVC SCH ×6 (03:23→23:51)
[2021-01-02] MEDS: Amiodarone Premix 360 MG/200 ML BAG IVC SCH ×3 (03:26→23:27)
[2021-01-02] MEDS: Ipratropium 1 PUFF INHALER IH SCH ×6 (03:34→23:27)
[2021-01-02] MEDS: Heparin 25,000UNIT/250ML 1/2NS 25,000 UNIT/250 ML IV.SOLN IVC SCH ×2 (03:45→17:43)
[2021-01-02] MEDS: Artificial Tears SOLN 15 ML BOTTLE BOTH EYES SCH ×6 (04:04→23:10)
[2021-01-02 04:33] LABS: ABG Base Excess 3 mEq/L (-2 to 3); ABG HCO3 28 mEq/L (21-27); ABG Oxygen Saturation 93 % (95-98); ABG PCO2 41 mmHg (35-45); ABG PH 7.44 pH Units (7.32-7.45); ABG PO2 66 mmHg (85-104); ABG TCO2 29 mEq/L (20-26); Blood Gas Modality ASSIST CONTROL; Blood Gas VT 450 cc
[2021-01-02 04:40] LABS: Hematocrit 40.1 % (37.5-50.1); Mean Corpuscular HGB Conc 31.2 g/dL (31.6-35.5); Mean Corpuscular Hemoglobin 26.9 pg (28.0-33.3); Mean Corpuscular Volume 86.4 fL (83.0-100.0); Platelet Count 218 K/mcL (140-400); Red Blood Count 4.64 M/mcL (4.19-5.50); White Blood Count 17.9 K/mcL (4.3-11.1)
[2021-01-02 04:43] LABS: VBG Ionized Calcium 0.95 mmol/L (1.15-1.35)
[2021-01-02 04:49] LABS: Hemoglobin 12.5 g/dL (12.9-16.9)
[2021-01-02 05:08] LABS: Anisocytosis 1+ (Not Present); Lymphocytes # 0.4 K/mcL (0.6-4.6); Macrocytosis Present (Not Present); Monocytes # 0.4 K/mcL (0.0-1.3); Neutrophils # 15.8 K/mcL (1.6-8.9); Platelet Estimate Normal (Normal)
[2021-01-02 06:04] LABS: BUN/Creatinine Ratio 52 (6-26); Blood Urea Nitrogen 39 mg/dL (6-20); Calcium 8.5 mg/dL (8.6-10.3); Carbon Dioxide 29 mEq/L (23-29); Chloride 106 mEq/L (98-107); Glucose 325 mg/dL (70-105); Magnesium 1.8 mg/dL (1.6-2.6); Osmolality,Calculated 316 (280-300); Phosphorous 2.8 mg/dL (2.7-4.5); Potassium 3.9 mEq/L (3.5-5.1); Sodium 142 mEq/L (136-145); eGFR For African Americans > 60 (> 60); eGFR For Non-African Americans > 60 (> 60)
[2021-01-02] MEDS: FentaNYL (PF) 1,000 MCG/100 ML IV.SOLN IVC SCH ×3 (06:54→19:35)
[2021-01-02] MEDS: Furosemide 20 MG/2 ML VIAL IVP SCH ×2 (07:49→19:35)
[2021-01-02] MEDS: Piperacillin/Tazobactam 3.375 GM in 0.9 % Sodium Chloride Mini Bag 100 ML IVPB SCH (07:49)
[2021-01-02] MEDS: Dexamethasone Sodium Phos/PF 10 MG/ML VIAL IVP SCH (07:49)
[2021-01-02] MEDS: Pantoprazole 40 MG VIAL IVP SCH (07:49)
[2021-01-02] MEDS: Chlorhexidine Rinse 15 ML MOUTHWASH MM SCH ×2 (07:49→19:35)
[2021-01-02] MEDS: Aspirin 81 MG TAB.CHEW PO SCH (07:50)
[2021-01-02] MEDS: Cyanocobalamin (B-12) 1,000 MCG TABLET PO SCH (07:50)
[2021-01-02] MEDS ORDERED: Calcium Gluconate 1gm/50mL 1 GM/50 ML BAG IVPB PRN (09:39)
[2021-01-02] MEDS ORDERED: Potassium Chloride 40 MEQ/200 ML BAG IVPB PRN (09:39)
[2021-01-02] MEDS ORDERED: Potassium Phosphate 44 MEQ in 0.9 % Sodium Chloride 250 ML IVPB PRN (09:39)
[2021-01-02] MEDS: *HR* Heparin 5,000 UNIT/ML VIAL IVP PRN (13:33)
[2021-01-02] MEDS: Docusate Oral Soln 100 MG/10 ML UDC GTUBE SCH ×2 (13:35→19:35)
[2021-01-02] MEDS: Cefepime HCl 2,000 MG in Water for inj. (sterile) 20 ML IVP SCH ×2 (16:23→23:10)
[2021-01-02] MEDS: Cisatracurium 200 MG in 0.9 % Sodium Chloride 180 ML IVC SCH (16:24)
[2021-01-02] MEDS: Midazolam HCl 50 MG/100 ML IV.SOLN IVC SCH (17:34)
[2021-01-02 17:54] LABS: Magnesium 1.8 mg/dL (1.6-2.6); Phosphorous 2.7 mg/dL (2.7-4.5); Potassium 4.2 mEq/L (3.5-5.1)
[2021-01-03] MEDS: FentaNYL (PF) 1,000 MCG/100 ML IV.SOLN IVC SCH ×4 (01:13→19:58)
[2021-01-03 02:35] LABS: Basophils # 0.1 K/mcL (0.0-0.2); Basophils % 0.3 %; Hematocrit 45.4 % (37.5-50.1); Immature Granulocytes % 2.8 % (0-4); Lymphocytes # 1.4 K/mcL (0.6-4.6); Lymphocytes % 6.5 %; Mean Corpuscular HGB Conc 31.5 g/dL (31.6-35.5); Mean Corpuscular Hemoglobin 26.9 pg (28.0-33.3); Mean Corpuscular Volume 85.5 fL (83.0-100.0); Mean Platelet Volume 12.1 fL (9.4-12.4); Monocytes # 2.1 K/mcL (0.0-1.3); Neutrophils # 17.3 K/mcL (1.6-8.9); Platelet Count 232 K/mcL (140-400); Red Blood Count 5.31 M/mcL (4.19-5.50); Red Cell Distribution Width 17.3 % (11.5-14.5); Segmented Neutrophils % 80.4 %; White Blood Count 21.5 K/mcL (4.3-11.1)
[2021-01-03 02:36] LABS: Hemoglobin 14.3 g/dL (12.9-16.9)
[2021-01-03 02:46] LABS: INR 1.5; Prothrombin Time 17.1 Seconds (9.4-12.1)
[2021-01-03 02:48] LABS: VBG Ionized Calcium 1.11 mmol/L (1.15-1.35)
[2021-01-03 02:58] LABS: Alanine Aminotransferase 18 Units/L (7-52); Albumin 2.8 g/dL (3.5-5.7); Albumin/Globulin Ratio 0.7 (1.1-2.2); Alkaline Phosphatase 38 Units/L (34-104); Aspartate Amino Transferase 16 Units/L (13-39); BUN/Creatinine Ratio 57 (6-26); Bilirubin,Direct 0.2 mg/dL (0.0-0.2); Bilirubin,Indirect 0.4 mg/dL (0.0-1.0); Bilirubin,Total 0.6 mg/dL (0.3-1.0); Blood Urea Nitrogen 39 mg/dL (6-20); Calcium 8.5 mg/dL (8.6-10.3); Carbon Dioxide 29 mEq/L (23-29); Chloride 105 mEq/L (98-107); Globulin 3.9 g/dL (2.4-3.5); Glucose 140 mg/dL (70-105); Magnesium 1.7 mg/dL (1.6-2.6); Osmolality,Calculated 304 (280-300); Phosphorous 2.7 mg/dL (2.7-4.5); Potassium 4.2 mEq/L (3.5-5.1); Sodium 141 mEq/L (136-145); Total Protein 6.7 g/dL (6.4-8.9); eGFR For African Americans > 60 (> 60); eGFR For Non-African Americans > 60 (> 60)
[2021-01-03] MEDS: Ipratropium 1 PUFF INHALER IH SCH ×6 (03:33→23:13)
[2021-01-03] MEDS: Artificial Tears SOLN 15 ML BOTTLE BOTH EYES SCH ×6 (03:53→23:07)
[2021-01-03] MEDS: Heparin 25,000UNIT/250ML 1/2NS 25,000 UNIT/250 ML IV.SOLN IVC SCH ×2 (04:06→15:22)
[2021-01-03] MEDS: Dexmedetomidine HCl 400 MCG/100 ML MLS IVC SCH ×3 (04:08→21:39)
[2021-01-03 04:11] LABS: ABG Base Excess 4 mEq/L (-2 to 3); ABG HCO3 29 mEq/L (21-27); ABG Oxygen Saturation 95 % (95-98); ABG PCO2 41 mmHg (35-45); ABG PH 7.45 pH Units (7.32-7.45); ABG PO2 70 mmHg (85-104); ABG TCO2 30 mEq/L (20-26); Blood Gas VT 450 cc
[2021-01-03] MEDS: Pantoprazole 40 MG VIAL IVP SCH (07:38)
[2021-01-03] MEDS: Chlorhexidine Rinse 15 ML MOUTHWASH MM SCH ×2 (07:38→19:58)
[2021-01-03] MEDS: Cyanocobalamin (B-12) 1,000 MCG TABLET PO SCH (07:38)
[2021-01-03] MEDS: Aspirin 81 MG TAB.CHEW PO SCH (07:38)
[2021-01-03] MEDS: Dexamethasone Sodium Phos/PF 10 MG/ML VIAL IVP SCH (07:39)
[2021-01-03] MEDS: Furosemide 20 MG/2 ML VIAL IVP SCH ×4 (07:39→20:05)
[2021-01-03] MEDS: Cefepime HCl 2,000 MG in Water for inj. (sterile) 20 ML IVP SCH ×3 (07:39→23:07)
[2021-01-03] MEDS: Docusate Oral Soln 100 MG/10 ML UDC GTUBE SCH ×2 (07:39→19:58)
[2021-01-03] MEDS: Amiodarone Premix 360 MG/200 ML BAG IVC SCH ×2 (11:50→19:57)
[2021-01-03 11:56] LABS: Phosphorous 2.9 mg/dL (2.7-4.5)
[2021-01-03] MEDS: Midazolam HCl 50 MG/100 ML IV.SOLN IVC SCH (16:16)
[2021-01-03] MEDS: Cisatracurium 200 MG in 0.9 % Sodium Chloride 180 ML IVC SCH (16:16)
[2021-01-04] MEDS: Heparin 25,000UNIT/250ML 1/2NS 25,000 UNIT/250 ML IV.SOLN IVC SCH ×2 (01:08→13:01)
[2021-01-04] MEDS: FentaNYL (PF) 1,000 MCG/100 ML IV.SOLN IVC SCH ×2 (01:10→08:36)
[2021-01-04] MEDS: Dexmedetomidine HCl 400 MCG/100 ML MLS IVC SCH ×5 (02:19→22:00)
[2021-01-04] MEDS: Artificial Tears SOLN 15 ML BOTTLE BOTH EYES SCH ×5 (03:04→20:29)
[2021-01-04 03:40] LABS: VBG Ionized Calcium 1.12 mmol/L (1.15-1.35)
[2021-01-04 03:42] LABS: Eosinophils % 0.1 %; Hemoglobin 12.9 g/dL (12.9-16.9); Immature Granulocytes % 1.4 % (0-4); Lymphocytes % 6.6 %
[2021-01-04 03:43] LABS: Basophils % 0.1 %; Hematocrit 42.4 % (37.5-50.1); Immature Platelets 15.2 % (1.1-6.1); Lymphocytes # 1.3 K/mcL (0.6-4.6); Mean Corpuscular HGB Conc 30.4 g/dL (31.6-35.5); Mean Corpuscular Hemoglobin 26.1 pg (28.0-33.3); Mean Corpuscular Volume 85.8 fL (83.0-100.0); Mean Platelet Volume 13.1 fL (9.4-12.4); Monocytes # 1.4 K/mcL (0.0-1.3); Monocytes % 7.4 %; Platelet Count 192 K/mcL (140-400); Red Blood Count 4.94 M/mcL (4.19-5.50); Red Cell Distribution Width 17.1 % (11.5-14.5); Segmented Neutrophils % 84.4 %; White Blood Count 18.9 K/mcL (4.3-11.1)
[2021-01-04] MEDS: Ipratropium 1 PUFF INHALER IH SCH ×5 (03:46→20:11)
[2021-01-04 03:51] LABS: INR 1.4; Prothrombin Time 16.1 Seconds (9.4-12.1)
[2021-01-04 03:56] LABS: Alanine Aminotransferase 19 Units/L (7-52); Albumin 2.6 g/dL (3.5-5.7); Albumin/Globulin Ratio 0.7 (1.1-2.2); Alkaline Phosphatase 33 Units/L (34-104); Aspartate Amino Transferase 11 Units/L (13-39); BUN/Creatinine Ratio 59 (6-26); Bilirubin,Direct 0.1 mg/dL (0.0-0.2); Bilirubin,Indirect 0.4 mg/dL (0.0-1.0); Bilirubin,Total 0.5 mg/dL (0.3-1.0); Blood Urea Nitrogen 38 mg/dL (6-20); Calcium 8.1 mg/dL (8.6-10.3); Carbon Dioxide 27 mEq/L (23-29); Chloride 103 mEq/L (98-107); Globulin 3.5 g/dL (2.4-3.5); Glucose 184 mg/dL (70-105); Magnesium 1.8 mg/dL (1.6-2.6); Osmolality,Calculated 298 (280-300); Phosphorous 2.9 mg/dL (2.7-4.5); Potassium 4.2 mEq/L (3.5-5.1); Sodium 137 mEq/L (136-145); Total Protein 6.1 g/dL (6.4-8.9); eGFR For African Americans > 60 (> 60); eGFR For Non-African Americans > 60 (> 60)
[2021-01-04 03:56] LABS: ABG Base Excess 3 mEq/L (-2 to 3); ABG HCO3 28 mEq/L (21-27); ABG Oxygen Saturation 94 % (95-98); ABG PCO2 44 mmHg (35-45); ABG PH 7.42 pH Units (7.32-7.45); ABG PO2 71 mmHg (85-104); ABG TCO2 30 mEq/L (20-26); Blood Gas VT 450 cc
[2021-01-04] MEDS: Docusate Oral Soln 100 MG/10 ML UDC GTUBE SCH ×2 (07:57→20:29)
[2021-01-04] MEDS: Cyanocobalamin (B-12) 1,000 MCG TABLET PO SCH (07:57)
[2021-01-04] MEDS: Chlorhexidine Rinse 15 ML MOUTHWASH MM SCH ×2 (07:57→20:29)
[2021-01-04] MEDS: Aspirin 81 MG TAB.CHEW PO SCH (07:57)
[2021-01-04] MEDS: Cefepime HCl 2,000 MG in Water for inj. (sterile) 20 ML IVP SCH ×2 (07:58→14:50)
[2021-01-04] MEDS: Furosemide 20 MG/2 ML VIAL IVP SCH ×2 (07:58→20:29)
[2021-01-04] MEDS: Pantoprazole 40 MG VIAL IVP SCH (07:58)
[2021-01-04] MEDS: Amiodarone Premix 360 MG/200 ML BAG IVC SCH (08:00)
[2021-01-04] MEDS: Insulin LISPRO 300 UNITS/3 ML VIAL SUBQ SCH ×3 (13:52→21:12)
[2021-01-04] MEDS ORDERED: Insulin DETEMIR 100 UNIT/ML X5UNITS SUBQ ONE (14:00)
[2021-01-04] MEDS ORDERED: Insulin LISPRO 300 UNITS/3 ML VIAL SUBQ SCH (18:00)
[2021-01-04] MEDS: Insulin DETEMIR 100 UNIT/ML X5UNITS SUBQ SCH (20:29)
[2021-01-04] MEDS ORDERED: Insulin DETEMIR 100 UNIT/ML X5UNITS SUBQ SCH (21:00)
[2021-01-05] MEDS: Insulin LISPRO 300 UNITS/3 ML VIAL SUBQ SCH ×10 (00:26→23:50)
[2021-01-05] MEDS: Cefepime HCl 2,000 MG in Water for inj. (sterile) 20 ML IVP SCH ×4 (00:26→23:50)
[2021-01-05] MEDS: Artificial Tears SOLN 15 ML BOTTLE BOTH EYES SCH ×7 (00:27→23:51)
[2021-01-05] MEDS: Heparin 25,000UNIT/250ML 1/2NS 25,000 UNIT/250 ML IV.SOLN IVC SCH ×3 (00:59→23:49)
[2021-01-05] MEDS: Dexmedetomidine HCl 400 MCG/100 ML MLS IVC SCH ×4 (02:25→19:00)
[2021-01-05] MEDS: Ipratropium 1 PUFF INHALER IH SCH ×7 (03:53→23:13)
[2021-01-05 05:00] LABS: Heparin anti-factor XA UFH 0.41 IU/mL (0.30-0.70)
[2021-01-05 05:01] LABS: VBG Ionized Calcium 1.12 mmol/L (1.15-1.35)
[2021-01-05 05:01] LABS: INR 1.3; Prothrombin Time 14.9 Seconds (9.4-12.1)
[2021-01-05 05:26] LABS: Alanine Aminotransferase 18 Units/L (7-52); Albumin 2.7 g/dL (3.5-5.7); Albumin/Globulin Ratio 0.7 (1.1-2.2); Alkaline Phosphatase 34 Units/L (34-104); Aspartate Amino Transferase 14 Units/L (13-39); BUN/Creatinine Ratio 63 (6-26); Bilirubin,Direct 0.2 mg/dL (0.0-0.2); Bilirubin,Indirect 0.7 mg/dL (0.0-1.0); Bilirubin,Total 0.9 mg/dL (0.3-1.0); Blood Urea Nitrogen 39 mg/dL (6-20); Calcium 8.4 mg/dL (8.6-10.3); Carbon Dioxide 31 mEq/L (23-29); Chloride 99 mEq/L (98-107); Globulin 3.7 g/dL (2.4-3.5); Glucose 139 mg/dL (70-105); Magnesium 1.9 mg/dL (1.6-2.6); Osmolality,Calculated 294 (280-300); Phosphorous 3.2 mg/dL (2.7-4.5); Potassium 4.2 mEq/L (3.5-5.1); Sodium 136 mEq/L (136-145); Total Protein 6.4 g/dL (6.4-8.9); eGFR For African Americans > 60 (> 60); eGFR For Non-African Americans > 60 (> 60)
[2021-01-05 05:27] LABS: Basophils % 0.1 %; Eosinophils # 0.2 K/mcL (0.0-0.6); Hematocrit 44.2 % (37.5-50.1); Hemoglobin 13.7 g/dL (12.9-16.9); Immature Platelets 18.7 % (1.1-6.1); Lymphocytes # 1.1 K/mcL (0.6-4.6); Lymphocytes % 6.7 %; Mean Corpuscular Hemoglobin 26.4 pg (28.0-33.3); Mean Corpuscular Volume 85.2 fL (83.0-100.0); Mean Platelet Volume 13.6 fL (9.4-12.4); Monocytes % 5.9 %; Neutrophils # 14.1 K/mcL (1.6-8.9); Platelet Count 186 K/mcL (140-400); Red Blood Count 5.19 M/mcL (4.19-5.50); Red Cell Distribution Width 16.7 % (11.5-14.5); Segmented Neutrophils % 85.3 %; White Blood Count 16.5 K/mcL (4.3-11.1)
[2021-01-05] MEDS: Pantoprazole 40 MG VIAL IVP SCH (08:17)
[2021-01-05] MEDS: Chlorhexidine Rinse 15 ML MOUTHWASH MM SCH ×2 (08:18→19:36)
[2021-01-05] MEDS: Furosemide 20 MG/2 ML VIAL IVP SCH ×2 (08:18→19:34)
[2021-01-05] MEDS: Aspirin 81 MG TAB.CHEW PO SCH (08:21)
[2021-01-05] MEDS: *HR* Amiodarone 200 MG TABLET PO SCH (08:21)
[2021-01-05] MEDS: Cyanocobalamin (B-12) 1,000 MCG TABLET PO SCH (08:21)
[2021-01-05] MEDS: Insulin DETEMIR 100 UNIT/ML X5UNITS SUBQ SCH (08:24)
[2021-01-05] MEDS: Docusate Oral Soln 100 MG/10 ML UDC GTUBE SCH ×2 (08:27→19:34)
[2021-01-05] MEDS: Nystatin SUSP 5 ML UD.LIQ PO SCH ×3 (12:31→19:35)
[2021-01-05] MEDS ORDERED: E-Z-HD (BARIUM SULF) SUSPENSION PO ONE (15:34)
[2021-01-05] MEDS ORDERED: Barium Sulfate 1 TAB TABLET PO ONE (15:34)
[2021-01-05] MEDS ORDERED: E-Z-PAQUE (BARIUM SULF) SUSP 1 BOTTLE PO ONE (15:34)
[2021-01-05] MEDS: Amiodarone Premix 360 MG/200 ML BAG IVC SCH (19:35)
[2021-01-05] MEDS ORDERED: Insulin DETEMIR 100 UNIT/ML X5UNITS SUBQ SCH (21:00)
[2021-01-05] MEDS ORDERED: DiphenhydraMINE CREAM 28.4 GM TUBE TP PRN (23:36)
[2021-01-05] MEDS: Neosporin OINT 15 GM TUBE TP SCH (23:50)
[2021-01-06] MEDS: Dexmedetomidine HCl 400 MCG/100 ML MLS IVC SCH (01:22)
[2021-01-06] MEDS: Ipratropium 1 PUFF INHALER IH SCH ×6 (03:35→23:31)
[2021-01-06] MEDS ORDERED: Acetaminophen IV 1,000 MG/100 ML BAG IVPB ONE ×2 (03:47→21:54)
[2021-01-06] MEDS: Insulin LISPRO 300 UNITS/3 ML VIAL SUBQ SCH ×5 (03:59→20:13)
[2021-01-06] MEDS: Artificial Tears SOLN 15 ML BOTTLE BOTH EYES SCH ×2 (03:59→08:19)
[2021-01-06 04:11] LABS: INR 1.4; Prothrombin Time 15.7 Seconds (9.4-12.1)
[2021-01-06 04:13] LABS: Basophils % 0.2 %; Eosinophils # 0.2 K/mcL (0.0-0.6); Eosinophils % 1.3 %; Hematocrit 45.7 % (37.5-50.1); Hemoglobin 14.4 g/dL (12.9-16.9); Immature Granulocytes % 0.8 % (0-4); Immature Platelets 19.5 % (1.1-6.1); Lymphocytes # 1.3 K/mcL (0.6-4.6); Lymphocytes % 8.2 %; Mean Corpuscular HGB Conc 31.5 g/dL (31.6-35.5); Mean Corpuscular Hemoglobin 26.6 pg (28.0-33.3); Mean Corpuscular Volume 84.5 fL (83.0-100.0); Mean Platelet Volume 13.4 fL (9.4-12.4); Monocytes # 1.1 K/mcL (0.0-1.3); Monocytes % 6.8 %; Neutrophils # 12.9 K/mcL (1.6-8.9); Platelet Count 165 K/mcL (140-400); Red Blood Count 5.41 M/mcL (4.19-5.50); Red Cell Distribution Width 16.1 % (11.5-14.5); Segmented Neutrophils % 82.7 %; White Blood Count 15.6 K/mcL (4.3-11.1)
[2021-01-06 04:25] LABS: Alanine Aminotransferase 17 Units/L (7-52); Albumin 2.9 g/dL (3.5-5.7); Albumin/Globulin Ratio 0.8 (1.1-2.2); Alkaline Phosphatase 37 Units/L (34-104); Aspartate Amino Transferase 15 Units/L (13-39); BUN/Creatinine Ratio 57 (6-26); Bilirubin,Direct 0.3 mg/dL (0.0-0.2); Bilirubin,Indirect 0.6 mg/dL (0.0-1.0); Bilirubin,Total 0.9 mg/dL (0.3-1.0); Blood Urea Nitrogen 39 mg/dL (6-20); Calcium 8.5 mg/dL (8.6-10.3); Carbon Dioxide 30 mEq/L (23-29); Chloride 97 mEq/L (98-107); Globulin 3.5 g/dL (2.4-3.5); Glucose 152 mg/dL (70-105); Magnesium 1.8 mg/dL (1.6-2.6); Osmolality,Calculated 292 (280-300); Phosphorous 3.4 mg/dL (2.7-4.5); Potassium 3.7 mEq/L (3.5-5.1); Sodium 135 mEq/L (136-145); Total Protein 6.4 g/dL (6.4-8.9); eGFR For African Americans > 60 (> 60); eGFR For Non-African Americans > 60 (> 60)
[2021-01-06 06:45] LABS: VBG Ionized Calcium 1.06 mmol/L (1.15-1.35)
[2021-01-06] MEDS: Cyanocobalamin (B-12) 1,000 MCG TABLET PO SCH (08:15)
[2021-01-06] MEDS: *HR* Amiodarone 200 MG TABLET PO SCH (08:15)
[2021-01-06] MEDS: Aspirin 81 MG TAB.CHEW PO SCH (08:15)
[2021-01-06] MEDS: Nystatin SUSP 5 ML UD.LIQ PO SCH ×4 (08:15→20:27)
[2021-01-06] MEDS: Pantoprazole 40 MG VIAL IVP SCH (08:15)
[2021-01-06] MEDS: Furosemide 20 MG/2 ML VIAL IVP SCH ×2 (08:15→20:12)
[2021-01-06] MEDS: Docusate Oral Soln 100 MG/10 ML UDC GTUBE SCH (08:16)
[2021-01-06] MEDS: Cefepime HCl 2,000 MG in Water for inj. (sterile) 20 ML IVP SCH ×2 (08:18→16:00)
[2021-01-06] MEDS: Chlorhexidine Rinse 15 ML MOUTHWASH MM SCH (08:19)
[2021-01-06] MEDS: Neosporin OINT 15 GM TUBE TP SCH ×3 (08:20→20:14)
[2021-01-06] MEDS ORDERED: Apixaban 5 MG TABLET PO SCH (09:00)
[2021-01-06] MEDS ORDERED: Docusate Oral Soln 100 MG/10 ML UDC PO SCH (09:00)
[2021-01-06] MEDS: Amiodarone Premix 360 MG/200 ML BAG IVC SCH (18:11)
[2021-01-06] MEDS ORDERED: Dextrose Gel 15 GM/37.5 ML TUBE PO PRN ×2 (18:47)
[2021-01-06] MEDS ORDERED: *HR* Dextrose 50 % in Water (Syg) 50 ML SYRINGE IVP PRN (18:47)
[2021-01-06] MEDS ORDERED: Dexmedetomidine HCl 400 MCG/100 ML MLS IVC SCH (18:47)
[2021-01-06] MEDS ORDERED: Naloxone 0.4 MG/ML INJ IVP PRN (18:47)
[2021-01-06] MEDS ORDERED: D5% in Water 1,000 ML IVC PRN (18:47)
[2021-01-06] MEDS ORDERED: DiphenhydraMINE CREAM 28.4 GM TUBE TP PRN (18:47)
[2021-01-06] MEDS ORDERED: Calcium Gluconate 1gm/50mL 1 GM/50 ML BAG IVPB PRN (18:47)
[2021-01-06] MEDS: Docusate Oral Soln 100 MG/10 ML UDC PO SCH (20:13)
[2021-01-06] MEDS: Apixaban 5 MG TABLET PO SCH (20:13)
[2021-01-06] MEDS ORDERED: Insulin LISPRO 300 UNITS/3 ML VIAL SUBQ SCH (21:00)
[2021-01-06] MEDS: Midazolam HCl 50 MG/100 ML IV.SOLN IVC SCH (21:27)
[2021-01-06] MEDS: *HR* Metoprolol 5 MG/5 ML VIAL IVP PRN (21:56)
[2021-01-07 03:50] LABS: Basophils % 0.2 %; Hematocrit 45.3 % (37.5-50.1); Mean Corpuscular Volume 84.2 fL (83.0-100.0); Red Blood Count 5.38 M/mcL (4.19-5.50)
[2021-01-07 03:52] LABS: Eosinophils # 0.1 K/mcL (0.0-0.6); Eosinophils % 0.5 %; Hemoglobin 14.2 g/dL (12.9-16.9); Immature Granulocytes % 0.6 % (0-4); Immature Platelets 19.4 % (1.1-6.1); Lymphocytes # 1.1 K/mcL (0.6-4.6); Lymphocytes % 6.1 %; Mean Corpuscular HGB Conc 31.3 g/dL (31.6-35.5); Mean Corpuscular Hemoglobin 26.4 pg (28.0-33.3); Mean Platelet Volume 14.1 fL (9.4-12.4); Monocytes # 1.2 K/mcL (0.0-1.3); Monocytes % 6.8 %; Platelet Count 211 K/mcL (140-400); Red Cell Distribution Width 16.1 % (11.5-14.5); Segmented Neutrophils % 85.8 %; White Blood Count 17.5 K/mcL (4.3-11.1)
[2021-01-07 03:57] LABS: BUN/Creatinine Ratio 54 (6-26); Blood Urea Nitrogen 42 mg/dL (6-20); Calcium 8.4 mg/dL (8.6-10.3); Carbon Dioxide 29 mEq/L (23-29); Chloride 99 mEq/L (98-107); Glucose 142 mg/dL (70-105); Magnesium 1.8 mg/dL (1.6-2.6); Osmolality,Calculated 301 (280-300); Potassium 3.7 mEq/L (3.5-5.1); Sodium 139 mEq/L (136-145); eGFR For African Americans > 60 (> 60); eGFR For Non-African Americans > 60 (> 60)
[2021-01-07] MEDS: Ipratropium 1 PUFF INHALER IH SCH ×5 (04:25→20:20)
[2021-01-07 05:12] LABS: VBG Ionized Calcium 1.05 mmol/L (1.15-1.35)
[2021-01-07] MEDS: Apixaban 5 MG TABLET PO SCH ×2 (07:42→19:50)
[2021-01-07] MEDS: Nystatin SUSP 5 ML UD.LIQ PO SCH ×5 (07:43→19:46)
[2021-01-07] MEDS: Cyanocobalamin (B-12) 1,000 MCG TABLET PO SCH (07:43)
[2021-01-07] MEDS: Aspirin 81 MG TAB.CHEW PO SCH (07:43)
[2021-01-07] MEDS: *HR* Amiodarone 200 MG TABLET PO SCH (07:43)
[2021-01-07] MEDS: Docusate Oral Soln 100 MG/10 ML UDC PO SCH ×3 (07:43→19:46)
[2021-01-07] MEDS: Pantoprazole 40 MG VIAL IVP SCH (07:44)
[2021-01-07] MEDS: Furosemide 20 MG/2 ML VIAL IVP SCH ×2 (07:44→19:50)
[2021-01-07] MEDS: Insulin LISPRO 300 UNITS/3 ML VIAL SUBQ SCH ×4 (07:44→20:18)
[2021-01-07] MEDS: Neosporin OINT 15 GM TUBE TP SCH ×3 (08:44→19:52)
[2021-01-07] MEDS: *HR* Metoprolol 5 MG/5 ML VIAL IVP PRN (11:51)
[2021-01-07] MEDS: Acetaminophen 325 MG TABLET PO PRN (15:46)
[2021-01-07] MEDS: Artificial Tears SOLN 15 ML BOTTLE BOTH EYES SCH ×2 (15:47→19:50)
[2021-01-08] MEDS: Ipratropium 1 PUFF INHALER IH SCH ×7 (00:47→23:48)
[2021-01-08 05:09] LABS: Basophils % 0.1 %; Mean Corpuscular Volume 85.1 fL (83.0-100.0)
[2021-01-08 05:10] LABS: VBG Ionized Calcium 1.08 mmol/L (1.15-1.35)
[2021-01-08 05:11] LABS: Eosinophils # 0.1 K/mcL (0.0-0.6); Eosinophils % 0.8 %; Hematocrit 42.4 % (37.5-50.1); Hemoglobin 13.7 g/dL (12.9-16.9); Immature Granulocytes % 0.5 % (0-4); Immature Platelets 16.5 % (1.1-6.1); Lymphocytes # 1.1 K/mcL (0.6-4.6); Lymphocytes % 7.4 %; Mean Corpuscular HGB Conc 32.3 g/dL (31.6-35.5); Mean Corpuscular Hemoglobin 27.5 pg (28.0-33.3); Mean Platelet Volume 13.1 fL (9.4-12.4); Monocytes # 1.1 K/mcL (0.0-1.3); Monocytes % 7.2 %; Neutrophils # 12.9 K/mcL (1.6-8.9); Platelet Count 221 K/mcL (140-400); Red Blood Count 4.98 M/mcL (4.19-5.50); Red Cell Distribution Width 16.2 % (11.5-14.5); White Blood Count 15.3 K/mcL (4.3-11.1)
[2021-01-08 05:30] LABS: BUN/Creatinine Ratio 58 (6-26); Blood Urea Nitrogen 42 mg/dL (6-20); Calcium 8.4 mg/dL (8.6-10.3); Carbon Dioxide 30 mEq/L (23-29); Chloride 97 mEq/L (98-107); Glucose 193 mg/dL (70-105); Magnesium 1.9 mg/dL (1.6-2.6); Osmolality,Calculated 298 (280-300); Potassium 3.8 mEq/L (3.5-5.1); Sodium 136 mEq/L (136-145); eGFR For African Americans > 60 (> 60); eGFR For Non-African Americans > 60 (> 60)
[2021-01-08] MEDS: Apixaban 5 MG TABLET PO SCH ×2 (07:18→21:16)
[2021-01-08] MEDS: *HR* Amiodarone 200 MG TABLET PO SCH (07:18)
[2021-01-08] MEDS: Nystatin SUSP 5 ML UD.LIQ PO SCH ×4 (07:18→21:17)
[2021-01-08] MEDS: Cyanocobalamin (B-12) 1,000 MCG TABLET PO SCH (07:18)
[2021-01-08] MEDS: Aspirin 81 MG TAB.CHEW PO SCH (07:18)
[2021-01-08] MEDS: Furosemide 20 MG/2 ML VIAL IVP SCH ×2 (07:19→21:15)
[2021-01-08] MEDS: Docusate Oral Soln 100 MG/10 ML UDC PO SCH ×2 (07:19→21:15)
[2021-01-08] MEDS: Pantoprazole 40 MG VIAL IVP SCH (07:19)
[2021-01-08] MEDS: Artificial Tears SOLN 15 ML BOTTLE BOTH EYES SCH ×4 (07:31→21:16)
[2021-01-08] MEDS: Insulin LISPRO 300 UNITS/3 ML VIAL SUBQ SCH ×4 (08:05→21:16)
[2021-01-08] MEDS: Neosporin OINT 15 GM TUBE TP SCH ×3 (08:08→21:17)
[2021-01-08 11:32] LABS: ABG Base Excess 7 mEq/L (-2 to 3); ABG HCO3 30 mEq/L (21-27); ABG Oxygen Saturation 96 % (95-98); ABG PCO2 39 mmHg (35-45); ABG PO2 76 mmHg (85-104); ABG TCO2 32 mEq/L (20-26); Blood Gas Modality BiLevel
[2021-01-08] MEDS: *HR* Metoprolol 5 MG/5 ML VIAL IVP PRN ×2 (12:30→22:58)
[2021-01-08] MEDS: Acetaminophen 325 MG TABLET PO PRN (14:31)
[2021-01-08] MEDS ORDERED: *HR* Metoprolol 5 MG/5 ML VIAL IVP ONE (23:48)
[2021-01-08] MEDS ORDERED: Acetaminophen IV 1,000 MG/100 ML BAG IVPB ONE (23:55)
[2021-01-09] MEDS: Ketorolac 15 MG/ML VIAL IVP PRN ×4 (01:38→20:54)
[2021-01-09 03:22] LABS: Basophils % 0.2 %; Eosinophils # 0.1 K/mcL (0.0-0.6); Eosinophils % 0.3 %; Hematocrit 45.2 % (37.5-50.1); Hemoglobin 13.8 g/dL (12.9-16.9); Immature Granulocytes % 0.6 % (0-4); Lymphocytes % 6.7 %; Mean Corpuscular HGB Conc 30.5 g/dL (31.6-35.5); Mean Corpuscular Hemoglobin 26.3 pg (28.0-33.3); Mean Corpuscular Volume 86.1 fL (83.0-100.0); Mean Platelet Volume 12.6 fL (9.4-12.4); Monocytes # 0.9 K/mcL (0.0-1.3); Monocytes % 6.2 %; Neutrophils # 13.1 K/mcL (1.6-8.9); Platelet Count 273 K/mcL (140-400); Red Blood Count 5.25 M/mcL (4.19-5.50); Red Cell Distribution Width 16.3 % (11.5-14.5); White Blood Count 15.2 K/mcL (4.3-11.1)
[2021-01-09 03:42] LABS: BUN/Creatinine Ratio 52 (6-26); Blood Urea Nitrogen 44 mg/dL (6-20); Calcium 8.5 mg/dL (8.6-10.3); Carbon Dioxide 30 mEq/L (23-29); Chloride 100 mEq/L (98-107); Glucose 190 mg/dL (70-105); Magnesium 2.1 mg/dL (1.6-2.6); Osmolality,Calculated 306 (280-300); Sodium 140 mEq/L (136-145); eGFR For African Americans > 60 (> 60); eGFR For Non-African Americans > 60 (> 60)
[2021-01-09] MEDS: Ipratropium 1 PUFF INHALER IH SCH ×6 (03:52→23:22)
[2021-01-09] MEDS ORDERED: Ibuprofen 400 MG TABLET PO ONE (04:20)
[2021-01-09] MEDS: Insulin LISPRO 300 UNITS/3 ML VIAL SUBQ SCH ×4 (07:51→20:42)
[2021-01-09] MEDS: Docusate Oral Soln 100 MG/10 ML UDC PO SCH ×2 (07:52→20:53)
[2021-01-09] MEDS: *HR* Amiodarone 200 MG TABLET PO SCH (07:52)
[2021-01-09] MEDS: Pantoprazole 40 MG VIAL IVP SCH (07:53)
[2021-01-09] MEDS: Cyanocobalamin (B-12) 1,000 MCG TABLET PO SCH (07:53)
[2021-01-09] MEDS: Aspirin 81 MG TAB.CHEW PO SCH (07:53)
[2021-01-09] MEDS: Apixaban 5 MG TABLET PO SCH ×2 (07:53→20:54)
[2021-01-09] MEDS: Furosemide 20 MG/2 ML VIAL IVP SCH ×2 (07:53→20:53)
[2021-01-09] MEDS: Artificial Tears SOLN 15 ML BOTTLE BOTH EYES SCH ×4 (07:54→20:53)
[2021-01-09] MEDS: Neosporin OINT 15 GM TUBE TP SCH ×3 (07:55→20:55)
[2021-01-09] MEDS: Nystatin SUSP 5 ML UD.LIQ PO SCH ×3 (07:55→16:25)
[2021-01-09] MEDS: *HR* Metoprolol 5 MG/5 ML VIAL IVP PRN (16:09)
[2021-01-09] MEDS: Acetaminophen 325 MG TABLET PO PRN (20:54)
[2021-01-10] MEDS: *HR* Metoprolol 5 MG/5 ML VIAL IVP PRN (03:22)
[2021-01-10] MEDS: Ipratropium 1 PUFF INHALER IH SCH ×5 (04:01→20:19)
[2021-01-10] MEDS ORDERED: *HR* Metoprolol 5 MG/5 ML VIAL IVP ONE (04:18)
[2021-01-10 04:25] LABS: Basophils % 0.2 %; Eosinophils % 0.2 %; Hematocrit 46.7 % (37.5-50.1); Hemoglobin 14.3 g/dL (12.9-16.9); Immature Granulocytes % 0.5 % (0-4); Lymphocytes % 4.7 %; Mean Corpuscular HGB Conc 30.6 g/dL (31.6-35.5); Mean Corpuscular Hemoglobin 26.7 pg (28.0-33.3); Mean Corpuscular Volume 87.1 fL (83.0-100.0); Mean Platelet Volume 12.8 fL (9.4-12.4); Monocytes % 4.7 %; Neutrophils # 19.1 K/mcL (1.6-8.9); Platelet Count 290 K/mcL (140-400); Red Blood Count 5.36 M/mcL (4.19-5.50); Red Cell Distribution Width 16.7 % (11.5-14.5); Segmented Neutrophils % 89.7 %; White Blood Count 21.3 K/mcL (4.3-11.1)
[2021-01-10 04:46] LABS: BUN/Creatinine Ratio 62 (6-26); Blood Urea Nitrogen 47 mg/dL (6-20); Calcium 8.7 mg/dL (8.6-10.3); Carbon Dioxide 26 mEq/L (23-29); Chloride 103 mEq/L (98-107); Glucose 179 mg/dL (70-105); Magnesium 2.3 mg/dL (1.6-2.6); Osmolality,Calculated 309 (280-300); Potassium 4.1 mEq/L (3.5-5.1); Sodium 141 mEq/L (136-145); eGFR For African Americans > 60 (> 60); eGFR For Non-African Americans > 60 (> 60)
[2021-01-10] MEDS: Artificial Tears SOLN 15 ML BOTTLE BOTH EYES SCH ×4 (07:51→22:09)
[2021-01-10] MEDS: Insulin LISPRO 300 UNITS/3 ML VIAL SUBQ SCH ×4 (07:51→22:09)
[2021-01-10] MEDS: Acetaminophen 325 MG TABLET PO PRN (07:52)
[2021-01-10] MEDS: Apixaban 5 MG TABLET PO SCH ×2 (07:52→21:52)
[2021-01-10] MEDS: Aspirin 81 MG TAB.CHEW PO SCH (07:52)
[2021-01-10] MEDS: Cyanocobalamin (B-12) 1,000 MCG TABLET PO SCH (07:52)
[2021-01-10] MEDS: *HR* Amiodarone 200 MG TABLET PO SCH (07:52)
[2021-01-10] MEDS: Pantoprazole 40 MG VIAL IVP SCH (07:53)
[2021-01-10] MEDS: Furosemide 20 MG/2 ML VIAL IVP SCH ×2 (07:53→21:52)
[2021-01-10] MEDS: Docusate Oral Soln 100 MG/10 ML UDC PO SCH ×2 (08:02→21:52)
[2021-01-10 09:20] LABS: Bacteria,Urine Few per hpf (None-Few); Bilirubin,Urine Negative (Negative); Blood,Urine Negative (Negative); Budding Yeast,Urine Many per hpf (None Seen); Clarity,Urine Turbid (Clear); Color,Urine Light-Yellow (Yellow); Glucose,Urine (UA) Normal (Normal); Hyaline Casts,Urine Few per lpf (None Seen); Ketones,Urine Negative (Negative); Leukocyte Esterase,Urine Moderate (Negative); Mucus,Urine Few per lpf (None-Few); Nitrite,Urine Negative (Negative); Protein,Urine Trace mg/dL (Neg-Trace); RBC,Urine 50-100 per hpf (0-3); Renal Epithelial Cells,Urine Few per hpf (None-Few); Specific Gravity,Urine 1.013 (1.010-1.025); Transitional Epi Cells,Urine Few per hpf (None-Few); Urobilinogen,Urine Normal (Normal); WBC,Urine 15-30 per hpf (0-3)
[2021-01-10] MEDS ORDERED: 0.9 % Sodium Chloride 500 ML IVC ONE (09:29)
[2021-01-10] MEDS: 0.9 % Sodium Chloride 1,000 ML IVC SCH ×2 (10:02→22:07)
[2021-01-10] MEDS: Neosporin OINT 15 GM TUBE TP SCH ×3 (10:02→22:19)
[2021-01-10] MEDS ORDERED: Isovue-370 500 ML BOTTLE IVP ONE (14:51)
[2021-01-10 14:58] LABS: ABG Base Excess 6 mEq/L (-2 to 3); ABG HCO3 30 mEq/L (21-27); ABG Oxygen Saturation 93 % (95-98); ABG PCO2 39 mmHg (35-45); ABG PO2 62 mmHg (85-104); ABG TCO2 31 mEq/L (20-26)
[2021-01-10] MEDS: Vancomycin 2,000 MG/520 ML IV.SOLN IVPB SCH (17:13)
[2021-01-10] MEDS: Piperacillin/Tazobactam 3.375 GM in 0.9 % Sodium Chloride Mini Bag 100 ML IVPB SCH (17:14)
[2021-01-10] MEDS ORDERED: Acetaminophen IV 500 MG/50 ML BAG IVPB SCH (19:00)
[2021-01-10] MEDS: Acetaminophen IV 500 MG/50 ML BAG IVPB SCH (19:53)
[2021-01-11] MEDS: Ipratropium 1 PUFF INHALER IH SCH ×6 (00:11→20:56)
[2021-01-11] MEDS: Piperacillin/Tazobactam 3.375 GM in 0.9 % Sodium Chloride Mini Bag 100 ML IVPB SCH ×3 (02:30→17:17)
[2021-01-11] MEDS: Acetaminophen IV 500 MG/50 ML BAG IVPB SCH ×4 (02:38→20:38)
[2021-01-11] MEDS: Vancomycin 2,000 MG/520 ML IV.SOLN IVPB SCH (04:07)
[2021-01-11 04:13] LABS: Basophils % 0.2 %; Eosinophils % 0.4 %; Hematocrit 32.4 % (37.5-50.1); Immature Granulocytes % 0.4 % (0-4); Lymphocytes # 0.7 K/mcL (0.6-4.6); Mean Corpuscular HGB Conc 30.2 g/dL (31.6-35.5); Mean Corpuscular Hemoglobin 27.2 pg (28.0-33.3); Monocytes # 0.6 K/mcL (0.0-1.3); Monocytes % 5.8 %; Platelet Count 196 K/mcL (140-400); Red Cell Distribution Width 16.5 % (11.5-14.5); Segmented Neutrophils % 86.2 %
[2021-01-11 04:25] LABS: Hemoglobin 9.8 g/dL (12.9-16.9); Neutrophils # 8.5 K/mcL (1.6-8.9); White Blood Count 9.9 K/mcL (4.3-11.1)
[2021-01-11 06:35] LABS: BUN/Creatinine Ratio 51 (6-26); Blood Urea Nitrogen 41 mg/dL (6-20); Calcium 8.2 mg/dL (8.6-10.3); Carbon Dioxide 31 mEq/L (23-29); Chloride 110 mEq/L (98-107); Glucose 152 mg/dL (70-105); Magnesium 2.1 mg/dL (1.6-2.6); Osmolality,Calculated 317 (280-300); Potassium 3.6 mEq/L (3.5-5.1); Sodium 147 mEq/L (136-145); eGFR For African Americans > 60 (> 60); eGFR For Non-African Americans > 60 (> 60)
[2021-01-11] MEDS: Pantoprazole 40 MG VIAL IVP SCH (07:35)
[2021-01-11] MEDS: 0.9 % Sodium Chloride 1,000 ML IVC SCH ×2 (07:36→17:18)
[2021-01-11] MEDS: Insulin LISPRO 300 UNITS/3 ML VIAL SUBQ SCH ×4 (07:45→20:48)
[2021-01-11] MEDS: Artificial Tears SOLN 15 ML BOTTLE BOTH EYES SCH ×4 (08:34→20:44)
[2021-01-11] MEDS: *HR* Amiodarone 200 MG TABLET PO SCH (10:43)
[2021-01-11] MEDS: Cyanocobalamin (B-12) 1,000 MCG TABLET PO SCH (12:29)
[2021-01-11] MEDS: Docusate Oral Soln 100 MG/10 ML UDC PO SCH ×2 (12:29→20:49)
[2021-01-11] MEDS: Neosporin OINT 15 GM TUBE TP SCH ×3 (14:13→20:44)
[2021-01-11] MEDS ORDERED: D5% in Water 500 ML IVC SCH (14:45)
[2021-01-11] MEDS ORDERED: *HR* Digoxin 0.5 MG/2 ML AMPUL IVP ONE (16:00)
[2021-01-11] MEDS: Vancomycin 1,500 MG/265 ML IV.SOLN IVPB SCH (17:17)
[2021-01-11] MEDS: Aspirin 81 MG TAB.CHEW PO SCH (17:19)
[2021-01-11] MEDS: Apixaban 5 MG TABLET PO SCH ×2 (17:19→21:21)
[2021-01-12] MEDS: Ipratropium 1 PUFF INHALER IH SCH ×7 (00:24→23:16)
[2021-01-12] MEDS: Piperacillin/Tazobactam 3.375 GM in 0.9 % Sodium Chloride Mini Bag 100 ML IVPB SCH ×3 (00:35→16:30)
[2021-01-12] MEDS: Acetaminophen IV 500 MG/50 ML BAG IVPB SCH ×4 (01:29→20:55)
[2021-01-12] MEDS: 0.9 % Sodium Chloride 1,000 ML IVC SCH ×3 (02:33→22:26)
[2021-01-12 03:09] LABS: Basophils % 0.3 %; Eosinophils # 0.1 K/mcL (0.0-0.6); Eosinophils % 1.4 %; Hematocrit 38.9 % (37.5-50.1); Hemoglobin 11.6 g/dL (12.9-16.9); Immature Granulocytes % 0.4 % (0-4); Lymphocytes # 0.9 K/mcL (0.6-4.6); Lymphocytes % 9.7 %; Mean Corpuscular HGB Conc 29.8 g/dL (31.6-35.5); Mean Corpuscular Hemoglobin 26.8 pg (28.0-33.3); Mean Corpuscular Volume 89.8 fL (83.0-100.0); Mean Platelet Volume 12.2 fL (9.4-12.4); Monocytes # 0.5 K/mcL (0.0-1.3); Monocytes % 5.8 %; Neutrophils # 7.7 K/mcL (1.6-8.9); Platelet Count 218 K/mcL (140-400); Red Blood Count 4.33 M/mcL (4.19-5.50); Red Cell Distribution Width 16.7 % (11.5-14.5); Segmented Neutrophils % 82.4 %; White Blood Count 9.4 K/mcL (4.3-11.1)
[2021-01-12 03:25] LABS: BUN/Creatinine Ratio 60 (6-26); Blood Urea Nitrogen 27 mg/dL (6-20); Calcium 6.9 mg/dL (8.6-10.3); Carbon Dioxide 24 mEq/L (23-29); Chloride 118 mEq/L (98-107); Glucose 136 mg/dL (70-105); Magnesium 1.7 mg/dL (1.6-2.6); Osmolality,Calculated 315 (280-300); Potassium 3.1 mEq/L (3.5-5.1); Sodium 149 mEq/L (136-145); eGFR For African Americans > 60 (> 60); eGFR For Non-African Americans > 60 (> 60)
[2021-01-12] MEDS: Vancomycin 1,500 MG/265 ML IV.SOLN IVPB SCH (04:58)
[2021-01-12] MEDS ORDERED: D5% in Water 1,000 ML IVC SCH (07:15)
[2021-01-12] MEDS: Insulin LISPRO 300 UNITS/3 ML VIAL SUBQ SCH ×4 (07:23→21:11)
[2021-01-12] MEDS: Docusate Oral Soln 100 MG/10 ML UDC PO SCH ×2 (09:37→20:54)
[2021-01-12] MEDS: Aspirin 81 MG TAB.CHEW PO SCH (10:17)
[2021-01-12] MEDS: Cyanocobalamin (B-12) 1,000 MCG TABLET PO SCH (10:17)
[2021-01-12] MEDS: Pantoprazole 40 MG VIAL IVP SCH (10:17)
[2021-01-12] MEDS: *HR* Amiodarone 200 MG TABLET PO SCH (10:18)
[2021-01-12] MEDS: Apixaban 5 MG TABLET PO SCH ×2 (10:18→20:54)
[2021-01-12] MEDS: Neosporin OINT 15 GM TUBE TP SCH ×3 (10:19→20:55)
[2021-01-12] MEDS: Artificial Tears SOLN 15 ML BOTTLE BOTH EYES SCH ×4 (10:19→20:54)
[2021-01-12] MEDS ORDERED: Fluconazole 400 MG/200 ML 400 MG/200 ML BAG IVPB ONE (14:12)
[2021-01-13] MEDS: Piperacillin/Tazobactam 3.375 GM in 0.9 % Sodium Chloride Mini Bag 100 ML IVPB SCH ×2 (00:17→07:39)
[2021-01-13] MEDS: Acetaminophen IV 500 MG/50 ML BAG IVPB SCH ×4 (02:15→20:05)
[2021-01-13] MEDS: Ipratropium 1 PUFF INHALER IH SCH ×5 (03:49→20:27)
[2021-01-13 03:52] LABS: Basophils % 0.1 %; Eosinophils # 0.3 K/mcL (0.0-0.6); Eosinophils % 4.3 %; Hematocrit 36.6 % (37.5-50.1); Hemoglobin 10.8 g/dL (12.9-16.9); Immature Granulocytes % 0.4 % (0-4); Mean Corpuscular HGB Conc 29.5 g/dL (31.6-35.5); Mean Corpuscular Hemoglobin 26.7 pg (28.0-33.3); Mean Corpuscular Volume 90.6 fL (83.0-100.0); Mean Platelet Volume 11.9 fL (9.4-12.4); Monocytes # 0.4 K/mcL (0.0-1.3); Monocytes % 4.7 %; Neutrophils # 5.6 K/mcL (1.6-8.9); Platelet Count 199 K/mcL (140-400); Red Blood Count 4.04 M/mcL (4.19-5.50); Red Cell Distribution Width 16.4 % (11.5-14.5); Segmented Neutrophils % 76.5 %; White Blood Count 7.4 K/mcL (4.3-11.1)
[2021-01-13 04:22] LABS: BUN/Creatinine Ratio 46 (6-26); Blood Urea Nitrogen 18 mg/dL (6-20); Calcium 7.5 mg/dL (8.6-10.3); Carbon Dioxide 23 mEq/L (23-29); Chloride 115 mEq/L (98-107); Glucose 135 mg/dL (70-105); Magnesium 1.9 mg/dL (1.6-2.6); Osmolality,Calculated 302 (280-300); Phosphorous 1.9 mg/dL (2.7-4.5); Potassium 3.6 mEq/L (3.5-5.1); Sodium 144 mEq/L (136-145); eGFR For African Americans > 60 (> 60); eGFR For Non-African Americans > 60 (> 60)
[2021-01-13] MEDS: Aspirin 81 MG TAB.CHEW PO SCH (07:38)
[2021-01-13] MEDS: Apixaban 5 MG TABLET PO SCH ×2 (07:38→20:07)
[2021-01-13] MEDS: Docusate Oral Soln 100 MG/10 ML UDC PO SCH ×2 (07:38→20:06)
[2021-01-13] MEDS: Cyanocobalamin (B-12) 1,000 MCG TABLET PO SCH (07:38)
[2021-01-13] MEDS: *HR* Amiodarone 200 MG TABLET PO SCH (07:38)
[2021-01-13] MEDS: Pantoprazole 40 MG VIAL IVP SCH (07:39)
[2021-01-13] MEDS: Insulin LISPRO 300 UNITS/3 ML VIAL SUBQ SCH ×4 (07:43→20:47)
[2021-01-13] MEDS: 0.9 % Sodium Chloride 1,000 ML IVC SCH ×3 (07:44→23:04)
[2021-01-13] MEDS: Artificial Tears SOLN 15 ML BOTTLE BOTH EYES SCH ×4 (07:50→20:06)
[2021-01-13] MEDS ORDERED: Fluconazole 200 MG/100 ML 200 MG/100 ML BAG IVPB SCH (09:00)
[2021-01-13] MEDS: Neosporin OINT 15 GM TUBE TP SCH ×3 (12:41→20:07)
[2021-01-13] MEDS: *HR* OxyCODONE/APAP 10/325 TABLET PO PRN (13:27)
[2021-01-13] MEDS: levoFLOXacin 750 MG TABLET PO SCH ×2 (13:31→13:59)
[2021-01-14] MEDS: Ipratropium 1 PUFF INHALER IH SCH ×8 (00:20→23:47)
[2021-01-14] MEDS: Acetaminophen IV 500 MG/50 ML BAG IVPB SCH ×4 (00:58→20:42)
[2021-01-14] MEDS: Aspirin 81 MG TAB.CHEW PO SCH (07:30)
[2021-01-14] MEDS: levoFLOXacin 750 MG TABLET PO SCH (07:30)
[2021-01-14] MEDS: Cyanocobalamin (B-12) 1,000 MCG TABLET PO SCH (07:30)
[2021-01-14] MEDS: *HR* Amiodarone 200 MG TABLET PO SCH (07:30)
[2021-01-14] MEDS: Apixaban 5 MG TABLET PO SCH (07:30)
[2021-01-14] MEDS: Furosemide 20 MG TABLET PO SCH (07:30)
[2021-01-14] MEDS: Insulin LISPRO 300 UNITS/3 ML VIAL SUBQ SCH ×4 (08:00→20:44)
[2021-01-14] MEDS: Artificial Tears SOLN 15 ML BOTTLE BOTH EYES SCH ×4 (08:01→20:44)
[2021-01-14] MEDS: Neosporin OINT 15 GM TUBE TP SCH ×3 (08:02→20:46)
[2021-01-14] MEDS: Fluconazole 40 MG/ML UDC PO SCH (08:03)
[2021-01-14] MEDS: Docusate Oral Soln 100 MG/10 ML UDC PO SCH ×2 (08:04→20:44)
[2021-01-14] MEDS: 0.9 % Sodium Chloride 1,000 ML IVC SCH ×2 (12:14)
[2021-01-15] MEDS: 0.9 % Sodium Chloride 1,000 ML IVC SCH ×2 (00:09→11:39)
[2021-01-15] MEDS: Acetaminophen IV 500 MG/50 ML BAG IVPB SCH ×4 (01:19→19:42)
[2021-01-15] MEDS: Ipratropium 1 PUFF INHALER IH SCH ×6 (03:46→23:51)
[2021-01-15 04:32] LABS: Basophils % 0.3 %; Eosinophils # 0.3 K/mcL (0.0-0.6); Eosinophils % 4.9 %; Hematocrit 35.7 % (37.5-50.1); Immature Granulocytes % 0.3 % (0-4); Lymphocytes % 15.7 %; Mean Corpuscular HGB Conc 30.8 g/dL (31.6-35.5); Mean Corpuscular Hemoglobin 27.1 pg (28.0-33.3); Mean Corpuscular Volume 87.9 fL (83.0-100.0); Monocytes # 0.4 K/mcL (0.0-1.3); Monocytes % 6.3 %; Neutrophils # 4.5 K/mcL (1.6-8.9); Platelet Count 188 K/mcL (140-400); Red Blood Count 4.06 M/mcL (4.19-5.50); Red Cell Distribution Width 16.2 % (11.5-14.5); Segmented Neutrophils % 72.5 %; White Blood Count 6.2 K/mcL (4.3-11.1)
[2021-01-15 04:50] LABS: BUN/Creatinine Ratio 25 (6-26); Blood Urea Nitrogen 9 mg/dL (6-20); Calcium 7.4 mg/dL (8.6-10.3); Carbon Dioxide 23 mEq/L (23-29); Chloride 111 mEq/L (98-107); Glucose 106 mg/dL (70-105); Magnesium 1.5 mg/dL (1.6-2.6); Osmolality,Calculated 291 (280-300); Phosphorous 1.9 mg/dL (2.7-4.5); Potassium 3.3 mEq/L (3.5-5.1); Sodium 141 mEq/L (136-145); eGFR For African Americans > 60 (> 60); eGFR For Non-African Americans > 60 (> 60)
[2021-01-15] MEDS ORDERED: Potassium Phosphate 44 MEQ in 0.9 % Sodium Chloride 250 ML IVPB ONE (07:01)
[2021-01-15] MEDS: levoFLOXacin 750 MG TABLET PO SCH (08:49)
[2021-01-15] MEDS: Furosemide 20 MG TABLET PO SCH (08:49)
[2021-01-15] MEDS: Fluconazole 40 MG/ML UDC PO SCH (08:49)
[2021-01-15] MEDS: Cyanocobalamin (B-12) 1,000 MCG TABLET PO SCH (08:49)
[2021-01-15] MEDS: Aspirin 81 MG TAB.CHEW PO SCH (08:49)
[2021-01-15] MEDS: *HR* Amiodarone 200 MG TABLET PO SCH (08:49)
[2021-01-15] MEDS: Insulin LISPRO 300 UNITS/3 ML VIAL SUBQ SCH ×4 (08:53→20:58)
[2021-01-15] MEDS: Neosporin OINT 15 GM TUBE TP SCH ×3 (08:55→20:56)
[2021-01-15] MEDS: Artificial Tears SOLN 15 ML BOTTLE BOTH EYES SCH ×4 (08:55→20:55)
[2021-01-15] MEDS: Docusate Oral Soln 100 MG/10 ML UDC PO SCH ×2 (08:59→20:56)
[2021-01-15] MEDS: Apixaban 5 MG TABLET PO SCH (20:54)
[2021-01-15] MEDS: Pregabalin 75 MG CAPSULE PO SCH (23:35)
[2021-01-16] MEDS: Acetaminophen IV 500 MG/50 ML BAG IVPB SCH ×2 (01:30→07:05)
[2021-01-16 01:34] LABS: BUN/Creatinine Ratio 18 (6-26); Blood Urea Nitrogen 7 mg/dL (6-20); Calcium 7.5 mg/dL (8.6-10.3); Carbon Dioxide 23 mEq/L (23-29); Chloride 108 mEq/L (98-107); Glucose 138 mg/dL (70-105); Magnesium 1.4 mg/dL (1.6-2.6); Osmolality,Calculated 288 (280-300); Phosphorous 1.9 mg/dL (2.7-4.5); Potassium 3.1 mEq/L (3.5-5.1); Sodium 139 mEq/L (136-145); eGFR For African Americans > 60 (> 60); eGFR For Non-African Americans > 60 (> 60)
[2021-01-16] MEDS: Ipratropium 1 PUFF INHALER IH SCH ×6 (03:50→23:49)
[2021-01-16] MEDS: 0.9 % Sodium Chloride 1,000 ML IVC SCH ×4 (04:13→23:54)
[2021-01-16] MEDS: Insulin LISPRO 300 UNITS/3 ML VIAL SUBQ SCH ×4 (07:06→20:33)
[2021-01-16] MEDS ORDERED: Potassium Phosphate 44 MEQ in 0.9 % Sodium Chloride 250 ML IVPB ONE (07:28)
[2021-01-16] MEDS: Pregabalin 75 MG CAPSULE PO SCH ×2 (08:23→20:30)
[2021-01-16] MEDS: Furosemide 20 MG TABLET PO SCH (08:23)
[2021-01-16] MEDS: *HR* Amiodarone 200 MG TABLET PO SCH (08:23)
[2021-01-16] MEDS: levoFLOXacin 750 MG TABLET PO SCH (08:23)
[2021-01-16] MEDS: Aspirin 81 MG TAB.CHEW PO SCH (08:23)
[2021-01-16] MEDS: Docusate Oral Soln 100 MG/10 ML UDC PO SCH ×2 (08:23→20:33)
[2021-01-16] MEDS: Cyanocobalamin (B-12) 1,000 MCG TABLET PO SCH (08:23)
[2021-01-16] MEDS: Apixaban 5 MG TABLET PO SCH ×2 (08:23→20:30)
[2021-01-16] MEDS: Artificial Tears SOLN 15 ML BOTTLE BOTH EYES SCH ×4 (08:24→20:33)
[2021-01-16] MEDS: Neosporin OINT 15 GM TUBE TP SCH ×3 (08:25→20:34)
[2021-01-16] MEDS: Fluconazole 40 MG/ML UDC PO SCH (08:41)
[2021-01-16] MEDS ORDERED: Acetaminophen 325 MG TABLET PO PRN (11:31)
[2021-01-17 02:55] LABS: BUN/Creatinine Ratio 16 (6-26); Blood Urea Nitrogen 8 mg/dL (6-20); Calcium 7.6 mg/dL (8.6-10.3); Carbon Dioxide 25 mEq/L (23-29); Chloride 110 mEq/L (98-107); Glucose 144 mg/dL (70-105); Magnesium 1.6 mg/dL (1.6-2.6); Osmolality,Calculated 295 (280-300); Phosphorous 2.2 mg/dL (2.7-4.5); Potassium 3.5 mEq/L (3.5-5.1); Sodium 142 mEq/L (136-145); eGFR For African Americans > 60 (> 60); eGFR For Non-African Americans > 60 (> 60)
[2021-01-17] MEDS: Ipratropium 1 PUFF INHALER IH SCH ×6 (04:21→23:06)
[2021-01-17] MEDS: Apixaban 5 MG TABLET PO SCH ×2 (08:31→19:58)
[2021-01-17] MEDS: Cyanocobalamin (B-12) 1,000 MCG TABLET PO SCH (08:31)
[2021-01-17] MEDS: Aspirin 81 MG TAB.CHEW PO SCH (08:31)
[2021-01-17] MEDS: levoFLOXacin 750 MG TABLET PO SCH (08:32)
[2021-01-17] MEDS: *HR* OxyCODONE/APAP 10/325 TABLET PO PRN ×2 (08:32→14:27)
[2021-01-17] MEDS: *HR* Amiodarone 200 MG TABLET PO SCH (08:32)
[2021-01-17] MEDS: Pregabalin 75 MG CAPSULE PO SCH ×2 (08:32→19:58)
[2021-01-17] MEDS: Fluconazole 100 MG TABLET PO SCH (08:32)
[2021-01-17] MEDS: Furosemide 20 MG TABLET PO SCH (08:32)
[2021-01-17] MEDS: Insulin LISPRO 300 UNITS/3 ML VIAL SUBQ SCH ×4 (08:38→19:58)
[2021-01-17] MEDS: Artificial Tears SOLN 15 ML BOTTLE BOTH EYES SCH ×4 (08:39→19:57)
[2021-01-17] MEDS: Docusate Oral Soln 100 MG/10 ML UDC PO SCH ×2 (08:39→20:04)
[2021-01-17] MEDS: Neosporin OINT 15 GM TUBE TP SCH ×3 (08:40→20:43)
[2021-01-18] MEDS: *HR* OxyCODONE/APAP 10/325 TABLET PO PRN ×2 (03:01→10:32)
[2021-01-18] MEDS: Ipratropium 1 PUFF INHALER IH SCH ×4 (03:32→16:30)
[2021-01-18 05:37] LABS: Hematocrit 38.3 % (37.5-50.1); Hemoglobin 11.9 g/dL (12.9-16.9)
[2021-01-18] MEDS: Aspirin 81 MG TAB.CHEW PO SCH (09:21)
[2021-01-18] MEDS: Fluconazole 100 MG TABLET PO SCH (09:21)
[2021-01-18] MEDS: Cyanocobalamin (B-12) 1,000 MCG TABLET PO SCH (09:21)
[2021-01-18] MEDS: Apixaban 5 MG TABLET PO SCH (09:21)
[2021-01-18] MEDS: Insulin LISPRO 300 UNITS/3 ML VIAL SUBQ SCH ×2 (09:22→13:45)
[2021-01-18] MEDS: levoFLOXacin 750 MG TABLET PO SCH (09:22)
[2021-01-18] MEDS: Neosporin OINT 15 GM TUBE TP SCH (09:22)
[2021-01-18] MEDS: Docusate Oral Soln 100 MG/10 ML UDC PO SCH (09:22)
[2021-01-18] MEDS: Furosemide 20 MG TABLET PO SCH (09:22)
[2021-01-18] MEDS: Pregabalin 75 MG CAPSULE PO SCH (09:22)
[2021-01-18] MEDS: Artificial Tears SOLN 15 ML BOTTLE BOTH EYES SCH ×2 (09:22→13:45)
[2021-01-18] MEDS: *HR* Amiodarone 200 MG TABLET PO SCH (09:22)
[2021-01-18 13:31] VITALS: BP 93/61; PULSE 97; TEMP 98.3
[2021-01-18 16:34] VITALS: O2SAT 96
== END 2021-01-18 17:12 | disposition critical access hospital (66) | DRG 207 ==
LOC: SUATTDRO → EMEROOARM 03:33 → SUATTDRO 13:29 → 2ANU 13:29 → ICNU 12-25 10:54 → 2NNU 01-06 20:57 → 2ANU 01-13 09:55
PROVIDERS: ADMIT Family Medicine; ATTEND Internal Medicine

== ENCOUNTER 2021-02-13 03:51 | Observation (INO) ==
[2021-02-13] MEDS ORDERED: Melatonin 3 MG TABLET PO PRN (08:35)
[2021-02-13] MEDS ORDERED: Ondansetron 4 MG/2 ML VIAL IVP PRN (08:35)
[2021-02-13] MEDS ORDERED: Naloxone 0.4 MG/ML INJ IVP PRN (08:35)
[2021-02-13] MEDS ORDERED: Acetaminophen 325 MG TABLET PO PRN (08:35)
[2021-02-13] MEDS ORDERED: *HR* Dextrose 50 % in Water (Syg) 50 ML SYRINGE IVP PRN (08:42)
[2021-02-13] MEDS ORDERED: D5% in Water 1,000 ML IVC PRN (08:42)
[2021-02-13] MEDS ORDERED: Dextrose Gel 15 GM/37.5 ML TUBE PO PRN ×2 (08:42)
[2021-02-13 09:31] LABS: Basophils # 0.1 K/mcL (0.0-0.2); Basophils % 0.5 %; Eosinophils % 0.2 %; Hematocrit 39.7 % (37.5-50.1); Hemoglobin 12.1 g/dL (12.9-16.9); Immature Granulocytes % 0.4 % (0-4); Lymphocytes # 2.3 K/mcL (0.6-4.6); Lymphocytes % 15.2 %; Mean Corpuscular HGB Conc 30.5 g/dL (31.6-35.5); Mean Corpuscular Hemoglobin 26.7 pg (28.0-33.3); Mean Corpuscular Volume 87.6 fL (83.0-100.0); Mean Platelet Volume 11.6 fL (9.4-12.4); Monocytes % 6.9 %; Neutrophils # 11.5 K/mcL (1.6-8.9); Platelet Count 351 K/mcL (140-400); Red Blood Count 4.53 M/mcL (4.19-5.50); Red Cell Distribution Width 17.2 % (11.5-14.5); Segmented Neutrophils % 76.8 %
[2021-02-13 09:51] LABS: Alanine Aminotransferase 17 Units/L (7-52); Albumin 3.5 g/dL (3.5-5.7); Albumin/Globulin Ratio 1.1 (1.1-2.2); Alkaline Phosphatase 66 Units/L (34-104); Aspartate Amino Transferase 9 Units/L (13-39); BUN/Creatinine Ratio 43 (6-26); Bilirubin,Total 0.6 mg/dL (0.3-1.0); Blood Urea Nitrogen 28 mg/dL (6-20); C-Reactive Protein < 5 mg/L (Less than 10); Calcium 9.1 mg/dL (8.6-10.3); Carbon Dioxide 31 mEq/L (23-29); Chloride 100 mEq/L (98-107); Globulin 3.1 g/dL (2.4-3.5); Glucose 184 mg/dL (70-105); Osmolality,Calculated 298 (280-300); Potassium 3.9 mEq/L (3.5-5.1); Sodium 139 mEq/L (136-145); Total Protein 6.6 g/dL (6.4-8.9); Troponin I 0.03 ng/mL (< 0.04); eGFR For African Americans > 60 (> 60); eGFR For Non-African Americans > 60 (> 60)
[2021-02-13 10:07] LABS: Estimated Average Glucose 197 mg/dl; Hemoglobin A1C 8.5 %
[2021-02-13] MEDS: 0.9 % Sodium Chloride 1,000 ML IVC SCH ×2 (10:08→20:51)
[2021-02-13] MEDS: Apixaban 5 MG TABLET PO SCH ×2 (10:08→20:25)
[2021-02-13] MEDS: *HR* Amiodarone 200 MG TABLET PO SCH (10:08)
[2021-02-13] MEDS: Insulin LISPRO 300 UNITS/3 ML VIAL SUBQ SCH ×2 (12:08→17:30)
[2021-02-13 16:25] LABS: Bilirubin,Urine Negative (Negative); Blood,Urine Large (Negative); Clarity,Urine Turbid (Clear); Color,Urine Yellow (Yellow); Glucose,Urine (UA) Normal (Normal); Ketones,Urine 15 mg/dL (Negative); Leukocyte Esterase,Urine Moderate (Negative); Nitrite,Urine Negative (Negative); Protein,Urine 30 mg/dL (Neg-Trace); Urobilinogen,Urine Normal (Normal)
[2021-02-13 16:37] LABS: Budding Yeast,Urine Moderate per hpf (None Seen); Mucus,Urine Few per lpf (None-Few); RBC,Urine TNTC per hpf (0-3); WBC,Urine TNTC per hpf (0-3)
[2021-02-13] MEDS: cefTRIAXone 2,000 MG in 0.9 % Sodium Chloride Mini Bag 100 ML IVPB SCH (17:30)
[2021-02-14 06:40] LABS: Basophils # 0.1 K/mcL (0.0-0.2); Basophils % 0.8 %; Eosinophils # 0.1 K/mcL (0.0-0.6); Eosinophils % 0.7 %; Hematocrit 38.2 % (37.5-50.1); Immature Granulocytes % 0.4 % (0-4); Lymphocytes # 2.2 K/mcL (0.6-4.6); Lymphocytes % 19.2 %; Mean Corpuscular HGB Conc 31.4 g/dL (31.6-35.5); Mean Corpuscular Hemoglobin 27.5 pg (28.0-33.3); Mean Corpuscular Volume 87.6 fL (83.0-100.0); Mean Platelet Volume 11.8 fL (9.4-12.4); Monocytes # 0.8 K/mcL (0.0-1.3); Platelet Count 320 K/mcL (140-400); Red Blood Count 4.36 M/mcL (4.19-5.50); Red Cell Distribution Width 17.2 % (11.5-14.5); Segmented Neutrophils % 71.9 %; White Blood Count 11.2 K/mcL (4.3-11.1)
[2021-02-14 07:13] LABS: BUN/Creatinine Ratio 45 (6-26); Blood Urea Nitrogen 27 mg/dL (6-20); Calcium 8.9 mg/dL (8.6-10.3); Carbon Dioxide 31 mEq/L (23-29); Chloride 102 mEq/L (98-107); Chol/HDL Ratio 3.4 (0-4.9); Cholesterol 111 mg/dL (< 200); Glucose 164 mg/dL (70-105); HDL Cholesterol 33 mg/dL (40-59); LDL Cholesterol,Calculated 39 mg/dL (< 100); Magnesium 1.8 mg/dL (1.6-2.6); Osmolality,Calculated 297 (280-300); Sodium 139 mEq/L (136-145); Triglycerides 193 mg/dL (< 150); eGFR For African Americans > 60 (> 60); eGFR For Non-African Americans > 60 (> 60)
[2021-02-14] MEDS: Insulin LISPRO 300 UNITS/3 ML VIAL SUBQ SCH ×3 (08:17→17:24)
[2021-02-14] MEDS: *HR* Amiodarone 200 MG TABLET PO SCH (08:17)
[2021-02-14] MEDS: Apixaban 5 MG TABLET PO SCH ×2 (08:17→20:11)
[2021-02-14] MEDS: Levalbuterol Neb 1.25 MG/3 ML IH SCH ×3 (10:26→20:42)
[2021-02-14] MEDS: polyethylene glycoL 3350 17 GM POWD.PACK PO SCH (10:45)
[2021-02-14] MEDS ORDERED: Isovue-370 500 ML BOTTLE IVP ONE (11:58)
[2021-02-14] MEDS: cefTRIAXone 2,000 MG in 0.9 % Sodium Chloride Mini Bag 100 ML IVPB SCH (17:24)
[2021-02-15] MEDS: Levalbuterol Neb 1.25 MG/3 ML IH SCH ×4 (03:47→20:58)
[2021-02-15 05:44] LABS: VBG HCO3 30 mEq/L (21-27); VBG PCO2 55 mmHg (41-51); VBG PH 7.35 pH Units (7.32-7.42); VBG PO2 41 mmHg (25-50)
[2021-02-15 05:44] LABS: Hematocrit 37.5 % (37.5-50.1); Hemoglobin 11.5 g/dL (12.9-16.9); Mean Corpuscular HGB Conc 30.7 g/dL (31.6-35.5); Mean Corpuscular Hemoglobin 26.7 pg (28.0-33.3); Mean Corpuscular Volume 87.2 fL (83.0-100.0); Mean Platelet Volume 11.9 fL (9.4-12.4); Platelet Count 262 K/mcL (140-400); Red Cell Distribution Width 16.8 % (11.5-14.5); White Blood Count 11.1 K/mcL (4.3-11.1)
[2021-02-15 06:10] LABS: BUN/Creatinine Ratio 38 (6-26); Blood Urea Nitrogen 21 mg/dL (6-20); Calcium 8.8 mg/dL (8.6-10.3); Carbon Dioxide 30 mEq/L (23-29); Chloride 102 mEq/L (98-107); Glucose 194 mg/dL (70-105); Osmolality,Calculated 292 (280-300); Potassium 3.8 mEq/L (3.5-5.1); Sodium 137 mEq/L (136-145); eGFR For African Americans > 60 (> 60); eGFR For Non-African Americans > 60 (> 60)
[2021-02-15] MEDS: *HR* Amiodarone 200 MG TABLET PO SCH (08:46)
[2021-02-15] MEDS: Apixaban 5 MG TABLET PO SCH ×2 (08:46→22:10)
[2021-02-15] MEDS: Insulin LISPRO 300 UNITS/3 ML VIAL SUBQ SCH ×3 (08:47→17:27)
[2021-02-15] MEDS: polyethylene glycoL 3350 17 GM POWD.PACK PO SCH (08:48)
[2021-02-15] MEDS ORDERED: *HR* OxyCODONE/APAP 10/325 TABLET PO PRN (11:39)
[2021-02-15] MEDS ORDERED: *HR* OxyCODONE/APAP 5/325 TABLET PO PRN (11:42)
[2021-02-15] MEDS: Furosemide 40 MG TABLET PO SCH ×2 (13:00→17:25)
[2021-02-15] MEDS: cefTRIAXone 2,000 MG in 0.9 % Sodium Chloride Mini Bag 100 ML IVPB SCH (17:25)
[2021-02-15 17:40] VITALS: O2SAT 100
[2021-02-15] MEDS ORDERED: Pregabalin 50 MG CAPSULE PO SCH (21:00)
[2021-02-15] MEDS ORDERED: traZODone 50 MG TABLET PO SCH (21:00)
[2021-02-16] MEDS: Levalbuterol Neb 1.25 MG/3 ML IH SCH ×2 (04:04→09:06)
[2021-02-16 07:47] VITALS: PULSE 81; TEMP 97.9
[2021-02-16 07:47] LABS: Hematocrit 39.2 % (37.5-50.1); Hemoglobin 12.3 g/dL (12.9-16.9); Mean Corpuscular HGB Conc 31.4 g/dL (31.6-35.5); Mean Corpuscular Hemoglobin 27.3 pg (28.0-33.3); Mean Corpuscular Volume 87.1 fL (83.0-100.0); Mean Platelet Volume 12.2 fL (9.4-12.4); Platelet Count 289 K/mcL (140-400); Red Cell Distribution Width 16.3 % (11.5-14.5); White Blood Count 10.8 K/mcL (4.3-11.1)
[2021-02-16 07:57] LABS: BUN/Creatinine Ratio 37 (6-26); Blood Urea Nitrogen 18 mg/dL (6-20); Calcium 9.1 mg/dL (8.6-10.3); Carbon Dioxide 28 mEq/L (23-29); Chloride 101 mEq/L (98-107); Glucose 245 mg/dL (70-105); Magnesium 1.9 mg/dL (1.6-2.6); Osmolality,Calculated 294 (280-300); Phosphorous 4.1 mg/dL (2.7-4.5); Potassium 4.5 mEq/L (3.5-5.1); Sodium 137 mEq/L (136-145); eGFR For African Americans > 60 (> 60); eGFR For Non-African Americans > 60 (> 60)
[2021-02-16] MEDS ORDERED: Racepinephrine Neb 0.5 ML VIAL IH ONE ×2 (08:48→08:52)
[2021-02-16 09:00] VITALS: BP 137/83
[2021-02-16] MEDS ORDERED: Pantoprazole 40 MG VIAL IVP SCH (09:00)
[2021-02-16] MEDS ORDERED: Aspirin 81 MG TAB.CHEW PO SCH (09:00)
[2021-02-16] MEDS: *HR* Amiodarone 200 MG TABLET PO SCH (09:55)
[2021-02-16] MEDS: Insulin LISPRO 300 UNITS/3 ML VIAL SUBQ SCH (09:55)
== END 2021-02-16 11:22 | disposition short-term general hospital (02) ==
LOC: INTOOBSV 08:05 → SUATTDRO 08:05 → 2ANU 08:05 → 2NNU 02-15 16:43
PROVIDERS: ADMIT Hospitalist; ATTEND Internal Medicine

== ENCOUNTER 2021-10-08 16:27 | Inpatient (IN) ==
[2021-10-08] MEDS ORDERED: 0.9 % Sodium Chloride 1,000 ML IVC ONE (16:47)
[2021-10-08] MEDS ORDERED: cefTRIAXone 1,000 MG in Water for inj. (sterile) 10 ML IVP ONE (16:48)
[2021-10-08 17:07] LABS: Basophils # 0.1 K/mcL (0.0-0.2); Basophils % 0.5 %; Eosinophils # 0.3 K/mcL (0.0-0.6); Eosinophils % 2.7 %; Hematocrit 39.1 % (37.5-50.1); Hemoglobin 11.6 g/dL (12.9-16.9); Immature Granulocytes % 0.4 % (0-4); Lymphocytes # 1.4 K/mcL (0.6-4.6); Lymphocytes % 15.3 %; Mean Corpuscular HGB Conc 29.7 g/dL (31.6-35.5); Mean Corpuscular Hemoglobin 25.6 pg (28.0-33.3); Mean Corpuscular Volume 86.3 fL (83.0-100.0); Mean Platelet Volume 12.3 fL (9.4-12.4); Monocytes # 0.6 K/mcL (0.0-1.3); Monocytes % 6.4 %; Neutrophils # 6.8 K/mcL (1.6-8.9); Platelet Count 197 K/mcL (140-400); Red Blood Count 4.53 M/mcL (4.19-5.50); Red Cell Distribution Width 16.3 % (11.5-14.5); Segmented Neutrophils % 74.7 %; White Blood Count 9.2 K/mcL (4.3-11.1)
[2021-10-08 17:10] LABS: VBG HCO3 26 mEq/L (21-27); VBG PCO2 58 mmHg (41-51); VBG PH 7.25 pH Units (7.32-7.42); VBG PO2 112 mmHg (25-50)
[2021-10-08 17:27] LABS: ABG Base Excess -3 mEq/L (-2 to 3); ABG HCO3 27 mEq/L (21-27); ABG Oxygen Saturation 93 % (95-98); ABG PCO2 72 mmHg (35-45); ABG PH 7.18 pH Units (7.32-7.45); ABG PO2 88 mmHg (85-104); ABG TCO2 29 mEq/L (20-26)
[2021-10-08 17:27] LABS: Alanine Aminotransferase 12 Units/L (7-52); Albumin 3.5 g/dL (3.5-5.7); Albumin/Globulin Ratio 1.1 (1.1-2.2); Alkaline Phosphatase 51 Units/L (34-104); Aspartate Amino Transferase 16 Units/L (13-39); BUN/Creatinine Ratio 33 (6-26); Bilirubin,Total 0.2 mg/dL (0.3-1.0); Blood Urea Nitrogen 84 mg/dL (6-20); Carbon Dioxide 25 mEq/L (23-29); Chloride 105 mEq/L (98-107); Creatine Kinase 339 Units/L (30-223); Globulin 3.2 g/dL (2.4-3.5); Glucose 164 mg/dL (70-105); Osmolality,Calculated 315 (280-300); Potassium 5.7 mEq/L (3.5-5.1); Sodium 138 mEq/L (136-145); Total Protein 6.7 g/dL (6.4-8.9); Troponin I < 0.03 ng/mL (< 0.04); eGFR For African Americans 32 (> 60); eGFR For Non-African Americans 26 (> 60)
[2021-10-08] MEDS ORDERED: Ipratropium/Albuterol Neb 3 ML IH ONE (17:58)
[2021-10-08 18:03] LABS: Influenza A PCR Negative (Negative); Influenza B PCR Negative (Negative); Resp. Syncytial Virus PCR Negative (Negative)
[2021-10-08 18:14] LABS: SARS-CoV-2 by PCR (In House) Negative (Negative)
[2021-10-08] MEDS: predniSONE 20 MG TABLET PO ONE ×2 (18:45→20:16)
[2021-10-08] MEDS ORDERED: methylPREDNISolone 125 MG/2 ML VIAL IVP ONE (19:33)
[2021-10-08] MEDS: Norepinephrine 4 MG/254 ML IV.SOLN IVC SCH (20:09)
[2021-10-08 22:07] LABS: ABG Base Excess -3 mEq/L (-2 to 3); ABG HCO3 26 mEq/L (21-27); ABG Oxygen Saturation 96 % (95-98); ABG PCO2 60 mmHg (35-45); ABG PH 7.24 pH Units (7.32-7.45); ABG PO2 97 mmHg (85-104); ABG TCO2 27 mEq/L (20-26)
[2021-10-08] MEDS ORDERED: *HR* Promethazine 25 MG/ML VIAL IM PRN (22:41)
[2021-10-08] MEDS ORDERED: Melatonin 3 MG TABLET PO PRN (22:41)
[2021-10-08] MEDS ORDERED: Ondansetron 4 MG/2 ML VIAL IVP PRN (22:41)
[2021-10-08] MEDS ORDERED: Acetaminophen 325 MG TABLET PO PRN (22:41)
[2021-10-08] MEDS ORDERED: Naloxone 0.4 MG/ML INJ IVP PRN (22:41)
[2021-10-08] MEDS ORDERED: Ipratropium/Albuterol Neb 3 ML IH PRN (23:16)
[2021-10-08] MEDS ORDERED: Dextrose Gel 15 GM/37.5 ML TUBE PO PRN ×2 (23:40)
[2021-10-08] MEDS ORDERED: *HR* Dextrose 50 % in Water (Syg) 50 ML SYRINGE IVP PRN (23:40)
[2021-10-08] MEDS ORDERED: D5% in Water 1,000 ML IVC PRN (23:40)
[2021-10-08] MEDS ORDERED: Insulin DETEMIR 100 UNIT/ML X5UNITS SUBQ SCH (23:45)
[2021-10-09] MEDS: MethylPREDNISolone 40 MG/ML VIAL IVP SCH ×2 (00:36→07:32)
[2021-10-09] MEDS: Apixaban 5 MG TABLET PO SCH ×2 (00:36→07:33)
[2021-10-09] MEDS: Insulin LISPRO 300 UNITS/3 ML VIAL SUBQ SCH ×2 (00:37→06:17)
[2021-10-09 00:41] LABS: Bilirubin,Urine Negative (Negative); Blood,Urine Negative (Negative); Clarity,Urine Clear (Clear); Color,Urine Colorless (Yellow); Glucose,Urine (UA) >=1000 mg/dL (Normal); Hyaline Casts,Urine Few per lpf (None Seen); Ketones,Urine Negative (Negative); Leukocyte Esterase,Urine Negative (Negative); Mucus,Urine Few per lpf (None-Few); Nitrite,Urine Negative (Negative); Protein,Urine Trace mg/dL (Neg-Trace); RBC,Urine 0-3 per hpf (0-3); Urobilinogen,Urine Normal (Normal); WBC,Urine 0-3 per hpf (0-3)
[2021-10-09] MEDS: Ringers Solution, Lactated 1,000 ML IVC SCH ×2 (00:45→10:49)
[2021-10-09] MEDS ORDERED: Azithromycin 500 MG in 0.9 % Sodium Chloride 250 ML IVPB SCH (01:00)
[2021-10-09 01:17] LABS: Basophils % 0.2 %; Eosinophils % 0.2 %; Hematocrit 40.5 % (37.5-50.1); Immature Granulocytes % 0.3 % (0-4); Lymphocytes # 0.5 K/mcL (0.6-4.6); Lymphocytes % 4.2 %; Mean Corpuscular HGB Conc 29.6 g/dL (31.6-35.5); Mean Corpuscular Hemoglobin 25.8 pg (28.0-33.3); Mean Corpuscular Volume 87.1 fL (83.0-100.0); Mean Platelet Volume 12.9 fL (9.4-12.4); Monocytes # 0.1 K/mcL (0.0-1.3); Monocytes % 0.8 %; Neutrophils # 11.2 K/mcL (1.6-8.9); Platelet Count 174 K/mcL (140-400); Red Blood Count 4.65 M/mcL (4.19-5.50); Red Cell Distribution Width 16.5 % (11.5-14.5); Segmented Neutrophils % 94.3 %; White Blood Count 11.9 K/mcL (4.3-11.1)
[2021-10-09 01:25] LABS: INR 1.3
[2021-10-09 01:37] LABS: Calcium 8.9 mg/dL (8.6-10.3); Potassium 6.1 mEq/L (3.5-5.1)
[2021-10-09 01:39] LABS: Albumin 3.6 g/dL (3.5-5.7); Bilirubin,Total 0.2 mg/dL (0.3-1.0); Calcium 8.9 mg/dL (8.6-10.3); Globulin 3.5 g/dL (2.4-3.5); Magnesium 2.1 mg/dL (1.6-2.6); Potassium 6.2 mEq/L (3.5-5.1); Total Protein 7.1 g/dL (6.4-8.9)
[2021-10-09] MEDS ORDERED: Insulin Human Regular 10 UNIT in 0.9 % Sodium Chloride 10 ML IV ONE (01:47)
[2021-10-09] MEDS ORDERED: *HR* Dextrose 50 % in Water (Syg) 50 ML SYRINGE IVP ONE (01:47)
[2021-10-09] MEDS ORDERED: Calcium Gluconate 1gm/50mL 1 GM/50 ML BAG IVPB ONE (01:47)
[2021-10-09] MEDS ORDERED: SODIUM ZIRCONIUM CYCLOSILICATE 5 GM POWD.PACK PO ONE (01:48)
[2021-10-09 04:55] LABS: Calcium 9.2 mg/dL (8.6-10.3); Potassium 5.6 mEq/L (3.5-5.1)
[2021-10-09 06:43] LABS: Protein/Creatinine Ratio,Urine 0.59 mg/mg (0.00-0.20); Sodium, Urine 51.2 mEq/L
[2021-10-09] MEDS: Norepinephrine 4 MG/254 ML IV.SOLN IVC SCH (07:27)
[2021-10-09 08:16] VITALS: TEMP 98.4
[2021-10-09 11:01] VITALS: BP 102/60; PULSE 84; O2SAT 94
== END 2021-10-09 11:32 | disposition short-term general hospital (02) | DRG 202 ==
LOC: ICNU 16:27 → EMEROOARM 16:27 → SUATTDRO 22:50 → ICNU 23:15
PROVIDERS: ADMIT Internal Medicine; ATTEND Internal Medicine